=== PATIENT | female | born 1945 | race Caucasian/White ===

== ENCOUNTER 2025-05-17 11:26 | Emergency (ER) | payer MEDICARE, OTHER, SELFPAY ==
--- NOTE | ~2025-05-17 | CT_ITS ---
CLINICAL HISTORY: headache, unknown if traumatic CT head without contrast Comparison: None provided Findings: No intra-axial mass, midline shift, hydrocephalus, or acute hemorrhage. Mild heterogeneous low attenuation in the periventricular white matter. Etue-kt-skvjohzs cerebral atrophy. The visualized paranasal sinuses and mastoid air cells are normal. The orbits are within normal limits. There is no acute fracture. Hyperostosis frontalis interna. IMPRESSION: 1. No acute intracranial findings. 2. Mild chronic periventricular microvascular ischemic disease. 3. Ppwm-ks-oqhhdrdq cerebral atrophy. This document has been electronically signed by: Alec Madrid MD on 05/17/2025 14:33:09
--- NOTE | ~2025-05-17 | CT_ITS ---
CLINICAL HISTORY: headache, unsure if fall CT cervical spine without contrast Comparison: None provided Findings: C3-4: Grade 1 anterolisthesis C3 over C4. C7-T1: Grade 1 anterolisthesis C7 over T1. No significant degenerative change. No acute fractures or dislocations. Visualized intracranial contents are unremarkable. No cervical fluid collections or masses. No consolidation or effusion at the lung apices. 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 Mild anterior spurring. C5-6 moderate to severe DJD with mild anterior spurring. C6-7: Moderate DJD. IMPRESSION: 1. No acute cervical spine fracture or dislocation. 2. Grade 1 anterolisthesis of C3 on C4 and C7 on T1. 3. Moderate to severe degenerative changes, most pronounced at C5-C6. This document has been electronically signed by: Alec Madrid MD on 05/17/2025 14:31:33
[2025-05-17 11:33] VITALS: BP 110/69; BP 160/88; PULSE 70; PULSE 81; RESP 18; TEMP 36.4; O2SAT 98; O2SAT 99; BMI 25.2
--- NOTE | 2025-05-17 11:50 | PC.NURSE ---
Pt placed on camera and chair alarm for high fall risk and elopement risk. Completed closed loop communication with VMT. Pt resting comfortably in bed.
--- NOTE | 2025-05-17 12:02 | ED.GENADULT ---
HPI - General Adult General Chief complaint: Headache Stated complaint: HEADACHE Time Seen by Provider: 05/17/25 12:02 Source: patient, EMS, RN notes reviewed and old records reviewed Mode of arrival: EMS Limitations: altered mental status History of Present Illness ED Provider: Chang GREER narrative: Patient is a 79-year-old female with history of dementia presenting to the ED from the [facility] complaining of headache this morning. Patient states that her headache has since resolved. She denies any associated blurred vision, double vision or other visual changes associated with the headache. Denies feeling dizziness or lightheadedness. Denies any chest pain, shortness of breath, palpitations. Staff unsure if patient sustained a fall or other traumatic injury. MD complaint: headache Onset (ago): hour(s) Related Data Allergies Allergy/AdvReac Type Severity Reaction Status Date / Time Sulfa (Sulfonamide Allergy Unknown Verified 05/17/25 13:52 Antibiotics) Review of Systems Review of Systems: As per HPI Yes all other systems are reviewed and are negative Constitutional: Constitutional: Reports as per HPI Neurologic: Reports confusion Psychiatric: Psychiatric: Reports confusion [facility] Social History Social History Smoked in Last 30 Days: No Use of substances other than those prescribed or required for medical reasons: No Advance Directives: No Advance Directives Information Provided: No Do you have a plan to hurt others: No Plan Physical Exam ED Vital Signs: Vital Signs - 24 hr 05/17/25 11:33 Temperature 97.6 F Pulse Rate 70 Respiratory Rate 18 Blood Pressure 110/69 Pulse Oximetry 98 Oxygen Delivery Method Room Air BMI result Body Mass Index 25.2 Vital signs have been reviewed and appear to be correct. Blood pressure normal. Heart rate normal. Respiratory rate normal. Temperature normal. Oxygen saturation normal. Const General: cooperative, healthy appearing, no acute distress, alert, awake and confusion Nutritional Appearance: average body habitus Orientation/consciousness: oriented to person, oriented to place and confusion HENMT Head: Yes normocephalic, Yes atraumatic, No Young's sign and No periorbital ecchymosis Ears: external ears normal General nose exam: Normal external nose present Face and sinus: Yes face symmetric Mouth: oropharynx normal and moist mucous membranes Throat: Yes uvula midline Eyes Pupils: Equal, round and reactive pupils present, Pupils normal by confrontation and Pupil accommodation reflex normal EOM: EOMs intact bilaterally Neck Neck: Yes normal visual inspection, Yes no meningeal signs and Yes supple Resp Effort & Inspection: normal respiratory effort and able to speak in complete sentences Auscultation: clear to auscultation bilaterally Cardio Rate: regular rate Rhythm: regular rhythm Heart sounds: S1 normal heart sound present and S2 normal heart sound present GI Palpation (GI): Soft to palpation and nontender Auscultation: normoactive bowel sounds General: Yes no CVA tenderness Back/Spine/Pelvis Back: no CVA tenderness Skin General skin exam: elasticity normal and turgor normal Neuro General: oriented to person, oriented to place, tone normal, moves all extremities, Normal light touch and pain sensation, no meningeal signs, no focal motor deficits, CN's II-XI intact bilaterally, deep tendon reflexes 2+ bilaterally and confusion Cranial nerves: Yes Equal, round and reactive pupils present Cognition (Neuro): normal cognition Extrem General: Yes full ROM, Yes no pedal edema and Yes no calf tenderness Psych Mental Status: mental status grossly normal Affect: normal affect Thought process: Normal thought process present Medical Decision Making Medical Decision Making [facility] Narrative: Patient is a 79-year-old female with history of dementia presenting to the ED from the [facility] complaining of headache this morning. On exam patient is awake, A+Ox2, VS WNL, afebrile, neurological exam without focal deficits, physical exam findings as above. Given reported symptoms and physical exam findings, initial differential includes but is not limited to ICH, skull or cervical vertebral fracture subluxation, tension headache, viral illness, electrolyte abnormality. Labs unremarkable. Viral serology negative. CT head and cspine notable for no evidence of ICH, skull or cervical vertebral fracture or subluxation. My interpretation is in agreement with the radiologist's interpretation. UA is without evidence of infection. Headache resolved without treatment. Feel patient is stable for discharge back to [facility] at this time. Differential Diagnosis Differential Diagnoses: The differential diagnosis associated with the presentation includes as per [facility] Admission/Observation Consideration of admission/observation: Escalation of care including admission/observation considered Patient would have been admitted to the hospital had their clinical presentation warranted hospital admission. Lab Data [facility] Lab Attestation statement: I reviewed the patient's lab results. as per [facility] 05/17/25 12:25 05/17/25 12:25 Labs: Lab Results 05/17/25 05/17/25 Range/Units 12:25 15:36 WBC 9.0 (4.8-10.8) X10*3/uL RBC 4.68 (4.20-5.50) X10*6/uL Hgb 14.2 (12.0-16.0) g/dl Hct 41.8 (37.0-47.0) % MCV 89.3 (80.0-98.0) fL MCH 30.3 (27.0-33.0) pg MCHC 34.0 (31.0-35.0) g/dl RDW 12.4 (11.0-16.0) % Plt Count 244 (160-400) X10*3/uL MPV 8.9 L (9.4-12.3) fL Immature Gran % (Auto) 0.1 (0.0-0.4) % Neut % (Auto) 46.5 (45-73) % Lymph % (Auto) 40.0 (20-40) % [place] % (Auto) 10.8 (2-11) % Eos % (Auto) 2.0 (0-4) % Baso % (Auto) 0.6 (0-2) % Lymph # (Auto) 3.6 (1.2-4.9) X10*3/uL [place] # (Auto) 1.0 (0.1-1.2) X10*3/uL Eos # (Auto) 0.2 (0.0-0.4) X10*3/uL Baso # (Auto) 0.1 (0.0-0.2) X10*3/uL Abs Immat Gran (auto) 0.01 (0.00-0.03) X10*3/uL Absolute Neuts (auto) 4.2 (2.0-8.3) x10*3/uL Absolute Nucleated RBC 0.000 (0.0-0.012) X10*3/uL Nucleated RBC % (auto) 0.0 (0.0-0.2) /100WBC Sodium 142 (135-145) mmol/L Potassium 3.5 (3.3-5.1) mmol/L Chloride 109 H (96-108) mmol/L Carbon Dioxide 23 (22-29) mmol/L Anion Gap 14 (12-20) BUN 14 (9-16) mg/dL Creatinine 1.00 (0.5-1.4) mg/dL Estim Creat Clear Calc 42.7 Estimated GFR 53 Random Glucose 81 (60-115) mg/dL Calcium 9.6 (8.4-10.2) mg/dL Total Bilirubin 0.5 (0.0-1.0) mg/dL AST 30 (5-31) U/L ALT 11 (0-31) U/L Alkaline Phosphatase 82 (39-117) U/L Total Protein 7.2 (6.5-8.0) g/dL Albumin 4.2 (3.5-5.0) g/dL Urine Color Yellow Urine Appearance Clear Urine pH 8.5 (5.0-9.0) Ur Specific [place] 1.010 (1.005-1.025) Urine Protein Negative (Neg-Trace) mg/dL Urine Glucose (UA) Negative (Negative) mg/dL Urine Ketones Trace (Negative) mg/dL Urine Blood Negative (Negative) Urine Nitrite Negative (Negative) Ur Leukocyte Esterase Trace H (Negative) Urine RBC 0-2 (0-2) /HPF Urine WBC 0-5 (0-5) /HPF Ur Squamous Epith Cells 6-10 (0-2) /HPF Urine Bacteria Trace (None Seen) Hyaline Casts 0-2 (0-2) /LPF COVID-19 (LUCI) Negative (Negative) COVID-19 Clin Com See Note Influenza Type A (RADHA) Negative (Negative) Influenza Type B (RADHA) Negative (Negative) Influenza A & B Note See Note Independent Interpretation I performed an independent interpretation of an: CT Scan Interpretation: CT head and c-spine without evidence of ICH, skull or cervical vertebral fracture or subluxation. Radiology Impression Discussion of test interpretation with radiology: I have reviewed the radiologist's reading. Radiologist Impression: IMPRESSION: 1. No acute cervical spine fracture or dislocation. 2. Grade 1 anterolisthesis of C3 on C4 and C7 on T1. 3. Moderate to severe degenerative changes, most pronounced at C5-C6. IMPRESSION: 1. No acute intracranial findings. 2. Mild chronic periventricular microvascular ischemic disease. 3. [id number]-tq-eammtdsa cerebral atrophy. External Record Review External record reviewed: Inpatient record, Office record and Outpatient record Discharge Plan Discharge Clinical Impression: Headache Patient Disposition: Xfer [facility] Instructions: Acute Headache (DC) Additional Instructions: You were evaluated in the emergency department today for a headache which resolved without treatment. The CT scan of your brain did not show evidence of any bleeding or other acute abnormality. Your labs were reassuring. Your urine did not show evidence of infection. Follow-up with your primary care provider as needed. Return to the emergency department with any new or concerning symptoms. Print Language: Qatari
--- OUTSIDE RECORDS SUMMARY | 2025-05-17 12:09 | XMS_ITS | Encounter Summary ---
Author Organization [facility] Address [address] [place] [phone] Phone Care Team Providers Care Heel Burnisher Name Role Phone Tavo Gomez DO Unavailable Maryam Ortiz CNP Unavailable Lars Guillermo MD Unavailable Jackson Huerta MD Unavailable [phone] Tamia Melendez NP Unavailable [phone] Mamie Mccord MD Unavailable Maryam Ortiz CNP Primary Care Provide r Tavo Gomez DO Unavailable Unknown, Unknown Primary Care Provider Tamia Duque NP Primary Care Provider Lulu Odonnell MD Unavailable Encounter Details Date Type Department Care Team (Late st Contact Info) Description 02/20/2020 Transcribe Orders [facility] [address] [place] [address] Maryam Ortiz, MINILAB OPERATOR [address] [facility] [place] [address] Social History Tobacco Use Types Packs/Day Years Used Date Smoking Tobacco: Never Smokeless Tobacco: Never Alcohol Use Standard Drinks/Week Comments Yes 0 (1 standard drink = 0.6 oz pur e alcohol) Comments Unknown Sex and Gender Information Value Date Recorded Sex Assigned at Female 11/18/2019 11:42 AM EDT Legal Sex Female 10:08 PM EDT Gender Identity Female 11/18/2019 11:42 AM EDT Sexual Orientation Straight 11/18/2019 11 :42 AM EDT documented as of this encounter Plan of Treatment Not on file documented as of this encounter Visit Diagnoses Not on filedocumented in this encounter Care Teams Heel Burnisher Relationship Specialty Start Date End Date Maryam Ortiz CNP [address] [place] [phone] PCP - General Family Medicine 03/10/19 12/01/20 Unknown, Unknown, PCP - General 12/02/20 04/19/21 Tamia Melendez NP PCP - General Family Medicine 04/20/21 Tavo Gomez DO [address] [place] [phone] Historical LMR Provider 06/23/17 Maryam Ortiz CNP [address] [place] [address] Historical LMR Provider 06/23/17 Lars Guillermo MD [address] [place] [address] Historical LMR Provider 06/23/17 Jackson Huerta MD [address] [place] [address] [email or web address] Historical LMR Provider 06/23/17 09/10/21 Tamia Melendez NP [address] [place] [address] Historical LMR Provider 06/23/17 2 Mamie Mccord MD [address] [place] [address] Orthopedics & Sports Medicine, [place] [address] [email or web address] Historical LMR Provider 06/23/17 Tavo Gomez DO [address] [place] [address] [email or web address] Insurance Assigned Provider 12/10/19 09/10/21 Lulu Odonnell MD [address] [place] [phone] Hand Surgery 04/28/21 documented as of this encounter Additional Source Comments The information contained in this document represents components of the legal health record. It is not the complete legal health record.[facility]
--- OUTSIDE RECORDS SUMMARY | 2025-05-17 12:09 | XMS_ITS | Encounter Summary ---
Author Organization [facility] Address [address] [place] [phone] Phone Care Team Providers Care Business Continuity Consultant Name Role Phone Tavo Gomez DO Unavailable Maryam Ortiz CNP Unavailable Lars Guillermo MD Unavailable Jackson Huerta MD Unavailable [phone] Tamia Melendez NP Unavailable Mamie Mccord MD Unavailable Maryam Ortiz CNP Primary Care Provide r Tavo Gomez DO Unavailable Unknown, Unknown Primary Care Provider Tamia Duque NP Primary Care Provider Lulu Odonnell MD Unavailable Reason for Referral * MRI/CAT Scan - Closed Specialty Diagnoses / Procedures Referred By Adina chambers Referred To Contact Radiology Diagnoses Lower abdominal pain Bloating Change in bowel habits Procedures CT Abdomen/Pelvis Kacy Angeles NP Phone: tel: fax: [email or web address] Referral ID Status Reason Start Date Expiration Date Visits Re quested Visits Authorized [id number] Closed 03/20/2019 03/19/2020 1 1 Encounter Details Date Type Department Care Team (Latest Contact Info) Description 03/20/2019 Transcribe Orders Virtual Department [address] [place] [phone] Kacy Angeles NP [address] [place] [address] [email or web address] Lower abdominal pain (Primary Dx); Bloating; Change in bowel habits Social History Tobacco Use Types Packs/Day Years Used Date Smoking Tobacco: Never Smokeless Tobacco: Never Comments Unknown Sex and Gender Information Value Date Recorded Sex Assigned at Female 11/18/2019 11:42 AM EDT Legal Sex Female 10:08 PM EDT Gender Identity Female 11/18/2019 11:42 AM EDT Sexual Orientation Straight 11/18/2019 11 :42 AM EDT documented as of this encounter Plan of Treatment Not on file documented as of this encounter Results * CT ABDOMEN/PELVIS WITH CONTRAST (03/27/2019 3:22 PM EDT) Anatomical Region Laterality Modality Abdomen, Pelvis Computed Tomogra phy 03/27/2019 3:48 PM EDT Impressions 03/27/2019 3:55 PM EDT Sigmoid diverticulosis without evidence of acute diverticulitis. 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 TOTAL CTDIvol: 6.30 mGy POS - [id number] Narrative 03/27/2019 3:55 PM EDT COMPARISON: 10/16/2014 ultrasound TECHNIQUE: Helical scanning was performed from the dome of the liver through the inferior pubic rami following intravenous and oral administration of contrast material. Sagittal and coronal reformats generated. Automated exposure control utilized. FINDINGS: There is a 10 x 7 mm diameter hypodense lesion in the left hepatic lobe displaying internal Hounsfield units upper limits normal for fluid but documented as a cyst on prior ultrasound. No hepatic mass, bile duct dilatation, or perihepatic ascites are identified. Portal vein appears to be grossly patent. No choledocholithiasis is seen. Spleen and adrenal glands are unremarkable in appearance. No pancreatic mass, duct dilatation, or peripancreatic inflammatory changes are identified. No renal mass, dominant cyst, or hydronephrosis apparent. 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 Bladder is unremarkable in appearance. No hiatal hernia. No evidence of small bowel obstruction or acute appendicitis. Stool and gas are present throughout nonopacified colonic loops with multiple sigmoid diverticula noted but no surrounding inflammatory infiltration to imply acute diverticulitis. Patient is status-post hysterectomy. No free fluid collections are seen in the dependent portion of the pelvis. No adnexal mass. No evidence of aortoiliac aneurysm. No pathologically enlarged mesenteric, para-aortic, iliac chain, or inguinal lymph nodes are demonstrated. No bowel-containing abdominal wall hernia. There is linear scarring versus subsegmental atelectasis in the right lower lobe. Additional atelectatic-type opacities are suggested in the more basilar aspects of both lower lobes. No traumatic or destructive skeletal lesions identified. Disc space calcification is noted at the L4-5 and L5-S1 levels with prominent degenerative facet arthropathy at the lumbosacral junction. Procedure Note Renay Ewing MD - 03/27/2019 COMPARISON: 10/16/2014 ultrasound TECHNIQUE: Helical scanning was performed from the dome of the liverthrough the inferior pubic rami following intravenous and oraladministration of contrast material. Sagittal and coronal reformatsgenerated. Automated exposure control utilized. FINDINGS: There is a 10 x 7 mm diameter hypodense lesion in the left hepatic lobedisplaying internal Hounsfield units upper limits normal for fluid butdocumented as a cyst on prior ultrasound. No hepatic mass, bile ductdilatation, or perihepatic ascites are identified. Portal vein appears jose antonio grossly patent. No choledocholithiasis is seen. Spleen and adrenal glands are unremarkable in appearance. No pancreaticmass, duct dilatation, or peripancreatic inflammatory changes areidentified. No renal mass, dominant cyst, or hydronephrosis apparent. There isduplication of the left renal collecting system with the ureteralcomponents merging proximally. Bladder is unremarkable in appearance. No hiatal hernia. No evidence of small bowel obstruction or acuteappendicitis. Stool and gas are present throughout nonopacified colonicloops with multiple sigmoid diverticula noted but no surroundinginflammatory infiltration to imply acute diverticulitis. Patient is status-post hysterectomy. No free fluid collections are seenin the dependent portion of the pelvis. No adnexal mass. No evidence ofaortoiliac aneurysm. No pathologically enlarged mesenteric, para-aortic,iliac chain, or inguinal lymph nodes are demonstrated. Nobowel-containing abdominal wall hernia. There is linear scarring versus subsegmental atelectasis in the rightlower lobe. Additional atelectatic-type opacities are suggested in themore basilar aspects of both lower lobes. No traumatic or destructive skeletal lesions identified. Disc spacecalcification is noted at the L4-5 and L5-S1 levels with prominentdegenerative facet arthropathy at the lumbosacral junction. IMPRESSION: Sigmoid diverticulosis without evidence of acute diverticulitis. Chronicsmall hepatic cyst and duplex left renal collecting system without othersignificant intra- abdominal or retroperitoneal pathology identified. TOTAL CTDIvol: 6.30 mGy POS - [id number] Kacy Angeles [employer]ROOM ATTENDANT IMG CT ABD/PELVIS Final Res ult documented in this encounter Visit Diagnoses Diagnosis Lower abdominal pain- Primary Abdominal pain, other specified site Bloating Flatulence, eructation, and gas pain Change in bowel habits Other symptoms involving digestive system Lower abdominal pain Abdominal pain, other specified site Bloating Flatulence, eructation, and gas pain Change in bowel habits Other symptoms involving digestive system documented in this encounter Additional Health Concerns Infection Onset Date Last Indicated Resolved Time CoV-Risk Comment:COVID-19 test pending 12/01/2019 12/01/2019 12/15/2019 1:23 AM EDT COVID-19 12/01/2019 12/01/2019 01/11/2020 1:23 AM EDT documented as of this encounter Care Teams Business Continuity Consultant Relationship Specialty Start Date End Date Maryam Ortiz CNP [address] [place] [phone] [email or web address] PCP - General Family Medicine 03/10/19 12/01/20 Unknown, Janeth, PCP - General 12/02/20 04/19/21 Tamia Melendez NP PCP - General Family Medicine 04/20/21 Tavo Gomez DO [address] [place] [address] [email or web address] Historical LMR Provider 06/23/17 Maryam Ortiz CNP [address] [place] [address] [email or web address] Historical LMR Provider 06/23/17 Lars Guillermo MD [address] [place] [phone] Historical LMR Provider 06/23/17 Jackson Huerta MD [address] [place] [phone] [email or web address] Historical LMR Provider 06/23/17 09/10/21 Tamia Melendez NP [address] [place] [address] Historical LMR Provider 06/23/17 Mamie Heart MD [address] [place] [address] Orthopedics [facility] Sports Medicine, [place] [address] [email or web address] Historical LMR Provider 06/23/17 Tavo Gomez DO [address] [place] [address] [email or web address] Insurance Assigned Provider 12/10/19 09/10/21 Lulu Odonnell MD [address] [place] [id number] Hand Surgery 04/28/21 documented as of this encounter Additional Source Comments The information contained in this document represents components of the legal health record. It is not the complete legal health record.[facility]
--- OUTSIDE RECORDS SUMMARY | 2025-05-17 12:09 | XMS_ITS | Encounter Summary ---
Author Organization [facility] Address [address] [place] [address] Phone Care Team Providers Care Scraper Tender Name Role Phone Tavo Gomez DO Unavailable Maryam Ortiz CNP Unavailable Lars Guillermo MD Unavailable Jackson Huerta MD Unavailable [phone] Tamia Melendez NP Unavailable Mamie Mccord MD Unavailable Tavo Gomez DO Unavailable Tavo Gomez DO Primary Care Provider Maryam Ortiz CNP Primary Care Provide r Tavo Gomez DO Unavailable Unknown, Unknown Primary Care Provider Tamia Duque ROLLER GOLD LEAF Primary Care Provider Lulu Odonnell MD Unavailable Encounter Details Date Type Department Care Team (Late st Contact Info) Description 11/18/2018 Ancillary Orders Non-Invasive Cardiology [address] [place] [address] Maryam Ortiz, QA ANALYST [address] [place] [address] Abnormal stress test; Increased heart rate; Activity intolerance Social History Tobacco Use Types Packs/Day Years [...] documented as of this encounter Results * NC Stress Result for Nuclear Stress Test (11/18/2018 10:06 AM EDT) Max BP Systolic 180 mmHg [facility] Max BP Diastolic 60 mmHg [facility] Max HR 157 BPM [facility] Resting HR 66 BPM [facility] Resting BP Systolic 120 mmHg [facility] Resting BP Diastolic 70 mmHg [facility] Peak METS 10.1 METS [facility] Peak HR 155 BPM [facility] Anatomical Region Laterality Modality Heart Other 11/18/2018 9:23 AM EDT 11/18/2018 10:08 AM EDT Narrative 11/18/2018 2:00 PM EDT This report represents only part of the nuclear stress test - sestamibi images will be reported separately by the Dept. of Radiology. Stress Findings Sestamibi images will be reported out separately by the Department of Radiology. This report represents only part of the nuclear stress test. Correlation of the imaging and electrocardiographic results is necessary. Since both tests have a percentage of false negatives/positives, both results must be correlated with the patient's other clinical date. Response to Stress The patient exercised for minutes seconds, achieving 10.1 METS at peak exercise. Baseline blood pressure was 120/70 mmHg, and baseline heart rate was 66 bpm. The patient achieved a peak heart rate of 155 bpm, which is% of their maximum predicted heart rate. Pt exercised for 7:45 min on a MILAGRO protocol achieving 10.1 METS. Test terminated due to fatigue. Baseline resting HR was 66. Max heart rate achieved was 157 (106% MPHR). 1. EKG - Baseline EKG showed normal sinus rhythm, nonspecific ST T wave abn. During exercise, there were 1-[address] depressions in the inferior leads and V4-V6. EKGs improved in early recovery. 2. SYMPTOMS - no chest pain. 3. EXERCISE PHYSIOLOGY - normal BP response to exercise. Normal functional capacity for age. 4. ARRHYTHMIAS - no ectopy Conclusion - abnormal stress test with EKG changes that are suggestive of ischemia. Nuclear images pending and will be reported separately. Clinton Reeves NP . Maryam Ortiz QA ANALYST CV NM CARDIAC Final Result documented in this encounter Visit Diagnoses Diagnosis Abnormal stress test Other nonspecific abnormal cardiovascular system function study Increased heart rate Unspecified tachycardia Activity intolerance Abnormal stress test Other nonspecific abnormal cardiovascular system function study Increased heart rate Unspecified tachycardia Activity intolerance documented in this encounter Additional Health Concerns Infection Onset Date Last Indicated Resolved Time CoV-Risk Comment:COVID-19 test pending 12/01/2019 12/01/2019 12/15/2019 1:23 AM EDT COVID-19 12/01/2019 12/01/2019 01/11/2020 1:23 AM EDT documented as of this encounter Care Teams Scraper Tender Relationship Specialty Start Date End Date Tavo Gomez DO [address] [place] [address] PCP - General Family Medicine 11/04/18 03/09/19 Maryam Ortiz, ZAID [address] [place] [address] PCP - General Family Medicine 03/10/19 12/01/20 Unknown, Unknown, PCP - General 12/02/20 04/19/21 Tamia Melendez NP PCP - General Family Medicine 04/20/21 Tavo Gomez DO [address] [place] [address] Historical LMR Provider 06/23/17 Maryam Ortiz CNP [address] [place] [address] Historical LMR Provider 06/23/17 Lars Guillermo MD [address] [place] [address] Historical LMR Provider 06/23/17 Jackson Huerta MD [address] [place] [address] [email or web address] Historical LMR Provider 06/23/17 09/10/21 Tamia Melendez NP [address] [place] [address] Historical LMR Provider 06/23/17 2 Mamie Mccord MD [address] [place] [address] [facility] Medicine, [place] [address] Historical LMR Provider 06/23/17 Tavo Gomez DO [address] [place] [address] Insurance Assigned Provider 12/01/17 03/15/19 Tavo Gomez DO [address] [place] [address] [email or web address] Insurance Assigned Provider 12/10/19 09/10/21 Lulu Odonnell MD [address] [place] [address] Hand Surgery 04/28/21 documented as of this encounter Additional Source Comments The information contained in this document represents components of the legal health record. It is not the complete legal health record.[facility]
--- OUTSIDE RECORDS SUMMARY | 2025-05-17 12:09 | XMS_ITS | Encounter Summary ---
Author Organization [facility] Address [address] [place] [address] Phone Care Team Providers Care Supervisor Reactor Fueling Name Role Phone Tavo Gomez DO Unavailable Maryam Ortiz CNP Unavailable Lars Guillermo MD Unavailable Jackson Huerta MD Unavailable [phone] Tamia Melendez NP Unavailable [phone] Mamie Mccord MD Unavailable Tavo Gomez DO Unavailable Maryam Ortiz CNP Primary Care Provide r Tavo Gomez DO Primary Care Provider [phone] Maryam Ortiz FLIGHT DATA TECHNICIAN Primary Care Provide r Tavo Gomez DO Unavailable Unknown, Unknown Primary Care Provider Tamia Duque NATURAL RESOURCE TECHNICIAN Primary Care Provider Lulu Odonnell MD Unavailable [phone] Encounter Details Date Type Department Care Team (Late st Contact Info) Description 07/01/2018 Transcribe Orders [facility] [address] [place] [address] Maryam Ortiz CNP [address] [place] [address] Social History Tobacco Use Types Packs/Day Years [...] Diagnoses Not on filedocumented in this encounter Additional Health Concerns Infection Onset Date Last Indicated Resolved Time CoV-Risk Comment:COVID-19 test pending 12/01/2019 12/01/2019 12/15/2019 1:23 AM EDT COVID-19 12/01/2019 12/01/2019 01/11/2020 1:23 AM EDT documented as of this encounter Care Teams Supervisor Reactor Fueling Relationship Specialty Start Date End Date Maryam Ortiz, ZAID [address] [place] [address] PCP - General Family Medicine 07/01/18 11/03/18 Tavo Gomez DO [address] [place] [address] [email or web address] PCP - General Family Medicine 11/04/18 03/09/19 Maryam Ortiz CNP [address] [place] [address] PCP - General Family Medicine 03/10/19 12/01/20 Unknown, Unknown, PCP - General 12/02/20 04/19/21 Tamia Melendez NP PCP - General Family Medicine 04/20/21 Tavo Gomez DO [address] [place] [address] [email or web address] Historical LMR Provider 06/23/17 Maryam Ortiz CNP [address] [place] [address] [email or web address] Historical LMR Provider 06/23/17 Lars Guillermo MD [address] [place] [address] Historical LMR Provider 06/23/17 Jackson Huerta MD [address] [place] [address] [email or web address] Historical LMR Provider 06/23/17 09/10/21 Tamia Melendez NP [address] [place] [address] Historical LMR Provider 06/23/17 2 Mamie Mccord MD [address] [place] [address] [facility] Medicine, [place] [address] [email or web address] Historical LMR Provider 06/23/17 Tavo Gomez DO [address] [place] [address] [email or web address] Insurance Assigned Provider 12/01/17 03/15/19 Tavo Gomez DO [address] [place] [address] [email or web address] Insurance Assigned Provider 12/10/19 09/10/21 Lulu Odonnell MD [address] [place] [address] Hand Surgery 04/28/21 documented as of this encounter Additional Source Comments The information contained in this document represents components of the legal health record. It is not the complete legal health record.[facility]
--- OUTSIDE RECORDS SUMMARY | 2025-05-17 12:09 | XMS_ITS | Clinical Summary ---
Author Organization [facility] Address [facility] [place] [address] Care Team Providers Care Traffic Sergeant Name Role Phone Unavailable Primary Care Provider Unavailabl e Allergies Active Allergy Reactions Criticality Noted Date Comments Sulfa (Sulfonamide Antibiotics) Anaphylaxis High 06/2018 Medications VITAMIN C, ASCORBATE CALCIUM, ORAL Take 1 capsule by mouth Daily. Active docosahexaenoic acid/epa (FISH OIL ORAL) Take 1 capsule by mouth Daily. 01/09/2012 Active aspirin 81 mg Tablet, Chewable Take 1 tablet by mouth Daily. Active cholecalciferol , Vitamin D3, 50 mcg (2,000 unit) Tablet Take 1,000 Units by mouth Daily. Active L.acid,ferm,michael ,rha-B.bif,long 126 mg (2 billion cell) tablet, delayed & ext.release Take 1 capsule by mouth Daily. Active levothyroxine (Synthroid) 25 mcg Tablet Take 12.5 mcg by mouth daily. 10/06/2022 Active Active Problems No known active problems Social History Tobacco Use Types Packs/Day Years Used Date Smoking Tobacco: Former Cigarettes Smokeless Tobacco: Never Tobacco Cessation:Counseling Given: Not Answered Comments Unknown Sex and Gender Information Value Date Recorded Sex Assigned at Not on file Legal Sex Female 3:41 PM EST Gender Identity Not on file Sexual Orientation Not on file Last Filed Vital Signs Vital Sign Reading Time Taken Comments Blood Pressure 156/84 11/07/2022 8:04 AM EST Pulse 76 11/07/2022 8:04 AM EST Temperature 36.1 C (97 F) 11/07/2022 8:04 AM EST Respiratory Rate - - Oxygen Saturation 97% 11/07/2022 8:04 AM EST Inhaled Oxygen Concentration - - Weight - - Height - - Body Mass Index - - Plan of Treatment Health Maintenance Due Date Last Done Comments Hepatitis C Screening 1963 Tetanus/Diphtheria/Pertussis Vaccines (1 - Tdap) 08/09 Pneumoccocal Vaccine: 50+ (1 of 1 - PCV) 1995 Zoster vaccine (1 of 2) 1995 Advance Directive 2000 Bone Density Scan 2010 RSV Vaccine (1 - 1-dose 75+ series) 2020 Covid-19 Vaccine (1 - 2023- season) 2025 Influenza (Flu) vaccine (1 o f 1 - Influenza standard series) 05/04/2025 Insurance MEDICARE [facility]
--- OUTSIDE RECORDS SUMMARY | 2025-05-17 12:09 | XMS_ITS | Encounter Summary ---
Author Organization [facility] Address [address] [place] [address] Phone Care Team Providers Care Culinary Internship Name Role Phone Tavo Gomez DO Primary Care Provider [phone] Tavo Gomez DO Unavailable Maryam Ortiz CNP Unavailable Lars Guillermo MD Unavailable Jackson Huerta MD Unavailable [phone] Tamia Melendez NP Unavailable Mamie Mccord MD Unavailable [phone] Tavo Gomez DO Unavailable Maryam Ortiz CNP Primary Care Provide r Tavo Gomez DO Primary Care Provider [phone] Maryam Ortiz CNP Primary Care Provide r Tavo Gomez DO Unavailable Unknown, Unknown Primary Care Provider Tamia Duque NP Primary Care Provider Lulu Odonnell MD Unavailable [phone] Encounter Details Date Type Department Care Team (Late st Contact Info) Description 09/10/2017 Transcribe Orders [facility] [address] [place] [address] Tavo Gomez, DO [address] [facility] [place] [address] [email or web address] Impaired fasting glucose; Acquired hypothyroidism Social History Tobacco Use Types Packs/Day Years Used Date Smoking Tobacco: Never Assessed Comments Unknown Sex and Gender Information Value Date Recorded Sex Assigned at Female 11/18/2019 11:42 AM EDT Legal Sex Female 10:08 PM EDT Gender Identity Female 11/18/2019 11:42 AM EDT Sexual Orientation Straight 11/18/2019 11 :42 AM EDT documented as of this encounter Plan of Treatment Not on file documented as of this encounter Procedures Procedure Name Priority Date/Time Associated Diagnosis Comments COMPREHENSIVE METABOLIC PANEL Routine 09/10/2017 11:04 AM EST Impaired fasting glucose CBC Routine 09/10/2017 11:04 AM EST Impaired fasting glucose TSH Routine 09/10/2017 11:04 AM EST Acquired hypothyroidism LIPID PANEL Routine 09/10/2017 11:04 AM EST Acquired hypothyroidism documented in this encounter Results * TSH (09/10/2017 11:04 AM EST) TSH 2.01 0.27 - 4.20 uIU/mL [facility] Blood 09/10/2017 11:0 4 AM EST 09/10/2017 11:06 AM EST us Maryam Ortiz TRACK REPAIR SUPERVISOR LAB BLOOD ORDERABLES Final Result [facility] [address] [place] [address] * (ABNORMAL) Lipid panel (09/10/2017 11:04 AM EST) HDL 57 mg/dL [facility] Comment: Interpretation: Risk Level Females Decreased >55mg/dL Average 50-55 mg/dL Increased <50 mg/dL CHOLESTEROL 227 0 - 240 mg/dL [facility] TRIGLYCERIDES 151 30 - 160 mg/dL [facility] LDL 140(H) 50 - 129 mg/dL [facility] Comment: LDL levels in terms of risk for coronary heart disease: <100 mg/dL: Optimal 100-129 mg/dL: Near or above optimal 130-159 mg/dL: Borderline high 160-189 mg/dL: High >190 mg/dL: Very High CARDIAC RISK RATIO 4.0 3.3 - 4.4 C [facility] Blood 09/10/2017 11:0 4 AM EST 09/10/2017 11:06 AM EST us Maryam Ortiz [facility] LAB BLOOD ORDERABLES Final Result [facility] [address] [place] [address] * Comprehensive metabolic panel (09/10/2017 11:04 AM EST) SODIUM 142 133 - 146 mmol/L [facility] POTASSIUM 4.1 3.3 - 5.1 mmol/L [facility] CHLORIDE 102 96 - 108 mmol/L [facility] CO2 29 21 - 35 mmol/L [facility] BUN 14 6 - 19 mg/dL [facility] CREATININE 0.80 0.5 - 1.5 mg/dL [facility] GLUCOSE 82 70 - 99 mg/dL [facility] ALBUMIN 4.2 3.9 - 4.8 g/dL [facility] TOTAL PROTEIN 7.3 6.5 - 8.0 g/dL [facility] CALCIUM 9.8 8.4 - 10.3 mg/dL [facility] ALKALINE PHOSPHATASE 69 39 - 117 U/L [facility] TOTAL BILIRUBIN 0.4 0 - 1.2 mg/dL [facility] AST 21 0 - 37 U/L [facility] ALT 9 0 - 40 U/L [facility] GLOBULIN 3.1 1 - 4.8 g/dL [facility] EGFR >60 mL/min/1.7 3m2 [facility] Comment:Abnormal if <60. If patient is -Afghan, multiply the result by 1.21. ANION GAP 15 10 - 20 mmol/L [facility] Blood 09/10/2017 11:0 4 AM EST 09/10/2017 11:06 AM EST Maryam Ortiz CNP LAB BLOOD ORDERABLES Final Result Performing Organization Address City/[facility]/ZIP Co de Phone Number [address] [address] * (ABNORMAL) CBC (09/10/2017 11:04 AM EST) WBC 7.09 3.40 - 11.20 K/uL [facility] RBC 4.83(H) 3.80 - 4.80 M/uL [facility] HGB 14.5 12.0 - 15.0 g/dL [facility] HCT 44.0 36.0 - 46.0 % [facility] PLT 233 130 - 400 K/uL [facility] MCV 91.1 79.0 - 98.0 fL [facility] MCH 30.0 27.0 - 34.8 pg [facility] MCHC 33.0 31.5 - 36.0 g/dL [facility] RDW 11.9 10.8 - 14.6 % [facility] MPV 9.4 9.4 - 12.4 [facility] NRBC 0.00 /100 WBCs [facility] ABSOLUTE NRBC 0.00 K/uL [facility] Blood 09/10/2017 11:0 4 AM EST 09/10/2017 11:06 AM EST Maryam Ortiz CNP LAB BLOOD ORDERABLES Final Result Performing Organization Address City/[facility]/ZIP Co de Phone Number [address] [address] documented in this encounter Visit Diagnoses Diagnosis Impaired fasting glucose Acquired hypothyroidism Unspecified hypothyroidism documented in this encounter Additional Health Concerns Infection Onset Date Last Indicated Resolved Time CoV-Risk Comment:COVID-19 test pending 12/01/2019 12/01/2019 12/15/2019 1:23 AM EDT COVID-19 12/01/2019 12/01/2019 01/11/2020 1:23 AM EDT documented as of this encounter Care Teams Culinary Internship Relationship Specialty Start Date End Date Tavo Gomez DO [address] [place] [address] PCP - General 06/21/17 06/30/18 Maryam Ortiz, ZAID [address] [place] [address] PCP - General Family Medicine 07/01/18 11/03/18 Tavo Gomez DO [address] [place] [address] PCP - General Family Medicine 11/04/18 03/09/19 Maryam Ortiz, ZAID [address] [place] [address] PCP - General Family Medicine 03/10/19 12/01/20 Unknown, Unknown, PCP - General 12/02/20 04/19/21 Tamia Melendez SEWAGE RETICULATION DRAFTING OFFICER PCP - General Family Medicine 04/20/21 Tavo Gomez DO [address] [place] [phone] Historical LMR Provider 06/23/17 Maryam Ortiz, ZAID [address] [place] [address] [email or web address] Historical LMR Provider 06/23/17 Lars Guillermo MD [address] [place] [address] Historical LMR Provider 06/23/17 Jackson Huerta MD [address] [place] [address] [email or web address] Historical LMR Provider 06/23/17 09/10/21 Tamia Melendez NP [address] [place] [address] Historical LMR Provider 06/23/17 Mamie Heart MD [address] [place] [address] [facility], [place] [address] [email or web address] Historical LMR Provider 06/23/17 Tavo Gomez DO [address] [place] [address] Insurance Assigned Provider 12/01/17 03/15/19 Tavo Gomez DO [address] [place] [address] Insurance Assigned Provider 12/10/19 09/10/21 Lulu Odonnell MD [address] [place] [address] Hand Surgery 04/28/21 documented as of this encounter Additional Source Comments The information contained in this document represents components of the legal health record. It is not the complete legal health record.[facility]
--- OUTSIDE RECORDS SUMMARY | 2025-05-17 12:09 | XMS_ITS | Encounter Summary ---
Author Organization [facility] Address [address] [place] [address] Phone Care Team Providers Care Company Secretary Name Role Phone Tavo Gomez DO Unavailable Maryam Ortiz CNP Unavailable Lars Guillermo MD Unavailable Jackson Huerta MD Unavailable [phone] Tamia Melendez NP Unavailable Mamie Mccord MD Unavailable Tavo Gomez DO Unavailable Maryam Ortiz CNP Primary Care Provide r Tavo Gomez DO Primary Care Provider [phone] Maryam Ortiz DIESEL ENGINE INSPECTOR Primary Care Provide r Tavo Gomez DO Unavailable Unknown, Unknown Primary Care Provider Tamia Duque COIL REPAIR TECHNICIAN Primary Care Provider Lulu Odonnell MD Unavailable Encounter Details Date Type Department Care Team (Late st Contact Info) Description 09/13/[address] [facility] [address] [place] [address] Maryam Ortiz CNP [address] [place] [address] Social History Tobacco Use Types Packs/Day Years [...] documented as of this encounter Care Teams Company Secretary Relationship Specialty Start Date End Date Maryam Ortiz, ZAID [address] [place] [address] PCP - General Family Medicine 07/01/18 11/03/18 Tavo Gomez DO [address] [place] [address] [email or web address] PCP - General Family Medicine 11/04/18 03/09/19 Maryam Ortiz CNP [address] [place] [address] PCP - General Family Medicine 03/10/19 12/01/20 Unknown, Unknown, PCP - General 12/02/20 04/19/21 Tamia Melendez NP PCP - General Family Medicine 04/20/21 Tavo Gomez DO [address] [place] [address] [email or web address] Historical LMR Provider 06/23/17 Maryam Ortiz CNP [address] [place] [address] [email or web address] Historical LMR Provider 06/23/17 Lars Guillermo MD [address] [place] [address] Historical LMR Provider 06/23/17 Jackson Huerta MD [address] [place] [address] [email or web address] Historical LMR Provider 06/23/17 09/10/21 Tamia Melendez NP [address] [place] [address] Historical LMR Provider 06/23/17 2 Mamie Mccord MD [address] [place] [address] [facility], [place] [address] [email or web address] Historical LMR Provider 06/23/17 Tavo Gomez DO [address] [place] [address] [email or web address] Insurance Assigned Provider 12/01/17 03/15/19 Tavo Gomez DO [address] [place] [address] [email or web address] Insurance Assigned Provider 12/10/19 09/10/21 Lulu Odonnell MD [address] [place] [phone] Hand Surgery 04/28/21 documented as of this encounter Additional Source Comments The information contained in this document represents components of the legal health record. It is not the complete legal health record.[facility]
--- OUTSIDE RECORDS SUMMARY | 2025-05-17 12:09 | XMS_ITS | Encounter Summary ---
Author Organization [facility] Address [address] [place] [address] Phone Care Team Providers Care Academic Affairs Dean Name Role Phone Tavo Gomez DO Unavailable Maryam Ortiz CNP Unavailable Lars Guillermo MD Unavailable [phone] Jackson Huerat MD Unavailable [phone] Tamia Melendez NP Unavailable Mamie Mccord MD Unavailable Maryam Ortiz CNP Primary Care Provide r Tavo Gomez DO Unavailable Unknown, Unknown Primary Care Provider Tamia Duque NP Primary Care Provider Lulu Odonnell MD Unavailable [phone] Encounter Details Date Type Department Care Team (Latest Contact Info) Description 03/19/2019 Transcribe Orders [facility] Laboratory [address] [place] [address] [phone] Kacy Angeles NP [address] [place] [address] [email or web address] Change in bowel habits (Primary Dx); Bloating; Lower abdominal pain Social History Tobacco Use Types Packs/Day Years [...] documented as of this encounter Results * H. pylori antigen, stool (03/22/2019 9:32 AM EDT) [facility] Negative Negative [facility] DPT OF LAB MED AND PAT+ Stool (Stool) 03/22/2019 9:3 2 AM EDT 03/22/2019 9:43 AM EDT us Kacy Angeles DRY CHAIN WORKER BODY FLUIDS AND STOOLS KAT SHUKLA Final Result [facility] DPT OF LAB MED AND PAT+ [address] [place] [address] * Fecal occult blood, multiple (03/22/2019 9:32 AM EDT) FECAL OCC BLD 1 DATE [id number] [facility] Occult bld, stool, #1 Negative Negative [facility] FECAL OCC BLD 2 DATE [phone],[id number] [facility] OCCULT BLD, STOOL, #2 Negative Negative [facility] FECAL OCC BLD 3 DATE 7,,019 [facility] FECAL OCC BLD 3 RSLT Negative Negative [facility] Stool (Stool) 03/22/2019 9:3 2 AM EDT 03/22/2019 9:38 AM EDT us Kacy Angeles DRY CHAIN WORKER BODY FLUIDS AND STOOLS ORDE RABMERLYN Final Result [facility] [address] [place] [address] * Giardia antigen screen (03/22/2019 9:32 AM EDT) ST GIARDIA ANTIGEN Negative Negative [facility] DPT OF LAB MED AND PAT+ Stool (Stool) 03/22/2019 9:3 2 AM EDT 03/22/2019 9:43 AM EDT Kacy Angeles DRY CHAIN WORKER MICROBIOLOGY - GENERAL ORDE RABMERLYN Final Result Performing Organization Address City/[facility]/ZIP Co de Phone Number [facility] DPT OF LAB MED AND PAT+ [address] [place] [address] * Ova and parasites, stool (03/22/2019 5:30 AM EDT) Special Requests None 03/22/2019 9:32 AM EDT [facility] DIRECT EXAM NO PARASITES FOUND BY DIRECT OR CONCENTRATION METHODS 03/27/2019 2:25 PM EDT [facility] DIRECT EXAM No parasites found by Trichrome Stain 03/27/2019 2:25 PM EDT [facility] Stool (Stool) 03/22/2019 5:3 0 AM EDT 03/22/2019 9:41 AM EDT Comment:STOOL Kacy Angeles NP MICROBIOLOGY - GENERAL ORDE RABMERLYN Final Result Performing Organization Address [facility] de Phone Number [address] [address] * Fecal leukocyte examination (03/22/2019 5:30 AM EDT) Special Requests None 03/22/2019 9:32 AM EDT [facility] GRAM STAIN Many WBC'S Observed 03/23/2019 1:42 PM EDT [facility] Stool (Stool) 03/22/2019 5:3 0 AM EDT 03/22/2019 9:41 AM EDT Kacy Angeles NP MICROBIOLOGY - GENERAL ORDE GAYLA Edited Result - Final Performing Organization Address [facility]/ZIP Co de Phone Number [address] [address] * Stool culture (03/22/2019 5:30 AM EDT) Special Requests None 03/22/2019 9:32 AM EDT [facility] Stool Culture NO SALMONELLA, SHIGELLA OR CAMPYLOBACTER ISOLATED 03/24/2019 10:26 AM EDT [facility] Stool (Stool) 03/22/2019 5:3 0 AM EDT 03/22/2019 9:41 AM EDT Kacy Angeles NP MICROBIOLOGY - GENERAL [facility] Final Result Performing Organization Address [facility] Co de Phone Number [address] [address] * Ova and parasites, stool (03/21/2019 6:30 AM EDT) Special Requests None 03/22/2019 9:32 AM EDT [facility] DIRECT EXAM NO PARASITES FOUND BY DIRECT OR CONCENTRATION METHODS 03/27/2019 2:26 PM EDT [facility] DIRECT EXAM No parasites found by Trichrome Stain 03/27/2019 2:26 PM EDT [facility] Stool (Stool) 03/21/2019 6:3 0 AM EDT 03/22/2019 9:40 AM EDT Kacy Angeles NP MICROBIOLOGY - GENERAL ORDE [facility] Final Result Performing Organization Address City/[facility]/ZIP Co de Phone Number [address] [address] * Ova and parasites, stool (03/20/2019 6:15 AM EDT) Special Requests None 03/22/2019 9:32 AM EDT [facility] DIRECT EXAM NO PARASITES FOUND BY DIRECT OR CONCENTRATION METHODS 03/27/2019 2:25 PM EDT [facility] DIRECT EXAM No parasites found by Trichrome Stain 03/27/2019 2:25 PM EDT [facility] Stool (Stool) 03/20/2019 6:1 5 AM EDT 03/22/2019 9:36 AM EDT Comment:STOOL Kacy Angeles DRY CHAIN WORKER MICROBIOLOGY - GENERAL ORDE RABMERLYN Final Result [address] [address] * C-Reactive Protein (03/19/2019 10:10 AM EDT) C REACTIVE PROTEIN 0.9 0.0 - 4.0 mg/L [facility] Blood 03/19/2019 10:1 0 AM EDT 03/19/2019 10:24 AM EDT Kacy Angeles DRY CHAIN WORKER LAB BLOOD ORDERABLES Final Result Performing Organization Address City/[facility]/ZIP Co de Phone Number [address] [address] * (ABNORMAL) Comprehensive metabolic panel (03/19/2019 10:10 AM EDT) Pathologist [facility] SODIUM 143 133 - 146 mmol/L [facility] POTASSIUM 4.5 3.3 - 5.1 mmol/L [facility] CHLORIDE 105 96 - 108 mmol/L [facility] CO2 29 21 - 35 mmol/L [facility] BUN 20(H) 6 - 19 mg/dL [facility] CREATININE 0.90 0.5 - 1.5 mg/dL [facility] GLUCOSE 96 70 - 99 mg/dL [facility] ALBUMIN 4.1 3.9 - 4.8 g/dL [facility] TOTAL PROTEIN 7.2 6.5 - 8.0 g/dL [facility] CALCIUM 10.2 8.4 - 10.3 mg/dL [facility] ALKALINE PHOSPHATASE 73 39 - 117 U/L [facility] TOTAL BILIRUBIN 0.5 0.0 - 1.2 mg/dL [facility] AST 22 0 - 37 U/L [facility] ALT 13 0 - 40 U/L [facility] GLOBULIN 3.1 1 - 4.8 g/dL [facility] EGFR 63 >59 mL/min/1.7 3m2 [facility] Comment:If patient is black, multiply result by 1.159. Estimated glomerular filtration rate calculated using the CKD-EPI equation. ANION GAP 14 10 - 20 mmol/L [facility] Blood 03/19/2019 10:1 0 AM EDT 03/19/2019 10:24 AM EDT Kacynel Holley Karthik DRY CHAIN WORKER LAB BLOOD ORDERABLES Final Result Performing Organization Address City/[facility]/ZIP Co de Phone Number [address] [address] * CBC (03/19/2019 10:10 AM EDT) WBC 5.01 3.40 - 11.20 K/uL [facility] RBC 4.51 3.80 - 4.80 M/uL [facility] HGB 13.6 12.0 - 15.0 g/dL [facility] HCT 41.9 36.0 - 46.0 % [facility] PLT 216 130 - 400 K/uL [facility] MCV 92.9 79.0 - 98.0 [facility] MCH 30.2 27.0 - 34.8 pg [facility] MCHC 32.5 31.5 - 36.0 g/dL [facility] RDW 12.2 10.8 - 14.6 % [facility] MPV 9.6 9.4 - 12.4 [facility] NRBC 0.00 0.00 /100 WBCs [facility] ABSOLUTE NRBC 0.00 0.00 K/uL [facility] Blood 03/19/2019 10:1 0 AM EDT 03/19/2019 10:24 AM EDT Kacy Leydigallito Angeles DRY CHAIN WORKER LAB BLOOD ORDERABLES Final Result Performing Organization Address City/[facility]/ZIP Co de Phone Number [address] [address] * Immunoglobulin A (03/19/2019 10:10 AM EDT) IgA 257 70 - 400 mg/dL [facility] Blood 03/19/2019 10:1 0 AM EDT 03/19/2019 10:24 AM EDT Kacy Angeles DRY CHAIN WORKER LAB BLOOD ORDERABLES Final Result Performing Organization Address City/[facility]/ZIP Co de Phone Number [facility] [address] [place] [address] * Tissue transglutaminase IgA (03/19/2019 10:10 AM EDT) TTG IGA ANTIBODY <1.2 <4.0 (Negative) U/mL [facility] Blood 03/19/2019 10:1 0 AM EDT 03/19/2019 10:23 AM EDT Kacynel Holley Karthik DRY CHAIN WORKER LAB BLOOD ORDERABLES Final Result Performing Organization Address City/[facility] Co de Phone Number [facility] LAB MED/[facility] [address] [place] [address] documented in this encounter Visit Diagnoses Diagnosis Change in bowel habits- Primary Other symptoms involving digestive system Bloating Flatulence, eructation, and gas pain Lower abdominal pain Abdominal pain, other specified site documented in this encounter Additional Health Concerns Infection Onset Date Last Indicated Resolved Time CoV-Risk Comment:COVID-19 test pending 12/01/2019 12/01/2019 12/15/2019 1:23 AM EDT COVID-19 12/01/2019 12/01/2019 01/11/2020 1:23 AM EDT documented as of this encounter Care Teams Academic Affairs Dean Relationship Specialty Start Date End Date Maryam Ortiz CNP [address] [place] [address] PCP - General Family Medicine 03/10/19 12/01/20 Unknown, Unknown, PCP - General 12/02/20 04/19/21 Tamia Melendez NP PCP - General Family Medicine 04/20/21 Tavo Gomez DO [address] [place] [address] Historical LMR Provider 06/23/17 Maryam Ortiz CNP [address] [place] [address] Historical LMR Provider 06/23/17 Lars Guillermo MD [address] [place] [address] Historical LMR Provider 06/23/17 Jackson Huerta MD [address] [place] [address] [email or web address] Historical LMR Provider 06/23/17 09/10/21 Tamia Melendez NP [address] [place] [address] Historical LMR Provider 06/23/17 2 Mamie Mccord MD [address] [place] [address] Orthopedics & Sports Medicine, [place] [address] Historical LMR Provider 06/23/17 Tavo Gomez DO [address] [place] [address] Insurance Assigned Provider 12/10/19 09/10/21 Lulu Odonnell MD [address] [place] [address] Hand Surgery 04/28/21 documented as of this encounter Additional Source Comments The information contained in this document represents components of the legal health record. It is not the complete legal health record.[facility]
--- OUTSIDE RECORDS SUMMARY | 2025-05-17 12:09 | XMS_ITS | Clinical Summary ---
Author Organization [facility] Address [address] [place] [phone] Phone Care Team Providers Care Photograph Developer Name Role Phone Tavo Gomez DO Unavailable Maryam Ortiz TELESALES MANAGER Unavailable Tamia Melendez NP Primary Care Provider Lulu Odonnell MD Unavailable [phone] Allergies Active Allergy Reactions Criticality Noted Date Comments Sulfa (Sulfonamide Antibiotics) Anaphylaxis High 06/2018 Medications aspirin 81 mg chewable tablet Take 1 tablet by mouth daily. Active DOCOSAHEXANOIC ACID/EPA (FISH OIL ORAL) Take 1 capsule by mouth daily. 2 Active L.michael,acid,ferm ,rhm-B.bif,long (CONTROLLED DELIVERY PROBIOTIC) 126 mg (2 billion cell) TaDE Take 1 capsule by mouth daily. Active ASCORBATE CALCIUM (VITAMIN C ORAL) Take 1 capsule by mouth daily. Active cholecalciferol (VITAMIN D3) 2,000 unit tablet Take 1,000 Units by mouth daily. Active hydrocortisone 1 % ointment Apply topically 2 (two) times a day. Active levothyroxine (SYNTHROID,LEVO THROID) 25 MCG tabletIndicatio ns:Hypothyroidi sm TAKE 1/2 (ONE-HALF) TABLET BY MOUTH IN THE MORNING ON AN EMPTY STOMACH 45 tablet 5 0 Active Active Problems Problem Noted Date Diagnosed Date Irritable bowel syndrome with diarrhea 0 Overview (12/23/2019): Under care of Dr Rose at [facility] 08/21/2019 Pure hypercholesterolemia 03/25/2019 Assessment & Plan (03/25/2019 8:55 AM EDT): As above Diarrhea 03/10/2019 Strain of cervical portion of right trapezius mu scle 12/25/2017 Esophageal spasm 12/25/2017 Hypothyroidism 09/10/2017 Low back pain 09/10/2017 Palpitations 09/10/2017 Postmenopausal estrogen deficiency 09/10/2017 Routine medical exam 09/10/2017 Resolved Problems Problem Noted Date Diagnosed Date Resolved Date Abdominal pain, epigastric 03/10/2019 0 12/23/2019 Assessment & Plan (03/11/2019 9:14 AM EDT): ? Relationship to atorvastatin. Pt will take a short holiday from the medication until we can achieve symptomatic improvement and then we'll consider reinstituting. Pt has a hx of GI ulcer as well and is advised to start a 2 week trial of omeprazole. Pt also to follow with Dr Rose as there was a recommendation to consider abd CT if previous symptoms persisted. ? IBS. Pt to RTC in 2 weeks and sooner prn for reevaluation. Abdominal bloating 03/10/2019 0 LLQ abdominal pain 07/02/2018 0 Assessment & Plan (07/02/2018 8:31 AM EDT): Suspect diverticulitis based on new sx and LLQ tenderness. Obtain labs, provide stool samples and after reviewing labs today if ESR, CRP elevated then will treat for diverticulitis and order CT scan, otherwise treat for infectious colitis while awaiting stool results. Eat at tolerated, avoid dairy and citrus, continue probiotic Elevated blood pressure read ing without diagnosis of hypertension 09/10/2017 09/12/2017 Impaired fasting glucose 09/10/201706/2018 Right hip pain 09/10/2017 09/12/2017 Right knee pain 09/10/2017 09/12/2017 Immunizations Immunization Administration Dates Next Due COVID-19 (Pre-06/25) Pfizer Vaccine, mRNA, PF ,10/08/2020 Influenza High-Dose Trivalent Preservative Free IM 06/30/2014 Pneumococcal conjugate PCV13 09/16/2018 Pneumococcal polysaccharide PPSV23 09/07/2014 Td (adult) 5 Lf Tetanus Toxoid, PF, Adsorbed 04/2007 Tdap 09/12/2016 Zoster live 01/15/2012 Family History Medical History Relation Comments Hyperlipidemia Brother Hypertension Brother Pancreatic cancer Brother Aneurysm Daughter 1 Brain No Known Problems Daughter 2 Heart attack Father Alzheimer's disease Mother Hypertension Mother Relation Status Comments Brother Daughter 1 Daughter 2 Father Mother Social History Tobacco Use Types Packs/Day Years Used Date Smoking Tobacco: Never Smokeless Tobacco: Never Alcohol Use Standard Drinks/Week Comments Yes 0 (1 standard drink = 0.6 oz pur e alcohol) Education Answer Date Recorded Are you interested in more education? Not on aneta e 12/29/2022 Are you concerned about learning? Not on file 12/29/2022 No 12/29/2022 No 12/29/2022 Digital Access Answer Date Recorded No 01/29/2023 No 01/29/2023 Reliable internet access at home? Not on file 01/29/2023 Device with a working camera? Not on file Comments Unknown Sex and Gender Information Value Date Recorded Sex Assigned at Female 11/18/2019 11:42 AM EDT Legal Sex Female 10:08 PM EDT Gender Identity Female 11/18/2019 11:42 AM EDT Sexual Orientation Straight 11/18/2019 11 :42 AM EDT Last Filed Vital Signs Vital Sign Reading Time Taken Comments Blood Pressure 141/79 08/21/2019 10:52 AM EST Pulse 68 12/08/2019 1:56 PM EDT Temperature 36.7 C (98 F) 12/08/2019 1:56 PM EDT Respiratory Rate - - Oxygen Saturation 96% 12/08/2019 1:56 PM EDT Inhaled Oxygen Concentration - - Weight 73.2 kg (161 lb 6 oz) 08/21/2019 10:52 AM EST Height 162.6 cm (5' 4.02 ) 08/21/2019 10:[address] Body Mass Index 27.69 08/21/2019 10:52 AM EST Plan of Treatment Health Maintenance Due Date Last Done Comments HEPATITIS C SCREENING 1963 ZOSTER VACCINES (2 of 3) 03/11/2012 01/15/2012 RSV VACCINE (1 - 1-dose 75+ series) 2020 DEPRESSION SCREENING 11/17/2020 11/18/2019 TSH LEVEL 02/23/2021 02/24/2020, 10/05, 09/13/2018, Additional history exists INFLUENZA VACCINE (#1) 2025 , 06/30/2020, 06/30/2014 COVID-19 VACCINE (3 - 2024- season) 2025 10/30/2020, 10/08/2020 LIPID PANEL 05/25/2026 05/25/2021, 02/02, 02/04/2019, Additional history exists Adult Td,Tdap Booster 09/12/2026 09/12/2016, 007 OSTEOPOROSIS SCREENING INITIAL (ONE-TIME) Completed 05/15/2017 PNEUMOCOCCAL VACCINES (50+ years) Completed 09/16/2018, 09/07/2014 SMOKING STATUS SCREENING (Once After 26 Yrs) Completed 08/21/2019 HEPATITIS A VACCINES Aged Out No long er eligible based on patient's age to complete this topic HIB VACCINES Aged Out No longer eligi ble based on patient's age to complete this topic MENINGOCOCCAL VACCINES (ACWY) Aged Out No longer eligible based on patient's age to complete this topic MENINGOCOCCAL VACCINES (B) Aged Out N o longer eligible based on patient's age to complete this topic Medical Devices Not on file Procedures Procedure Name Priority Date/Time Associated Diagnosis Comments LIPID PANEL Routine 02/24/2020 8:00 AM EDT Pure hypercholesterolemia TSH Routine 02/24/2020 8:00 AM EDT Acquired hypothyroidism OUTSIDE BONE DENSITY SCREENING Routine 05/15/2017 from Last 3 Months or Most Recently Relevant to Health Maintenance Results * TSH (02/24/2020 8:00 AM EDT) TSH 1.07 0.27 - 4.20 uIU/mL [facility] Blood 02/24/2020 8:00 AM EDT 02/24/2020 8:17 AM EDT us Maryam Ortiz CNP LAB BLOOD ORDERABLES Final Result Performing Organization Address City/[facility] Co de Phone Number [address] [address] * Lipid panel (02/24/2020 8:00 AM EDT) HDL 61 mg/dL [facility] Comment: Interpretation <40 mg/dL: Low HDL cholesterol (major risk factor for CHD) Greater than or equal to 60 mg/dL: High HDL cholesterol ( negative risk factor for CHD) HDL - cholesterol is affected by a number of factors, e.g. smoking, excerise, hormones, sex and age. CHOLESTEROL 202 0 - 240 mg/dL [facility] TRIGLYCERIDES 85 30 - 160 mg/dL [facility] LDL 124 50 - 129 mg/dL [facility] Comment: LDL levels in terms of risk for coronary heart disease: <100 mg/dL: Optimal 100-129 mg/dL: Near or above optimal 130-159 mg/dL: Borderline high 160-189 mg/dL: High >190 mg/dL: Very High CARDIAC RISK RATIO 3.3 3.3 - 4.4 C [facility] Blood 02/24/2020 8:00 AM EDT 02/24/2020 8:17 AM EDT us Maryam Ortiz CNP LAB BLOOD ORDERABLES Final Result Performing Organization Address City/[facility]/ZIP Co de Phone Number [address] [address] * OUTSIDE BONE DENSITY SCREENING (05/15/2017) BONE DENSITY SCREENING - EXTERNAL [facility] us Historical Provider HEALTH MAINTENANCE Final Result from Last 3 Months or Most Recently Relevant to Health Maintenance Insurance MEDICARE PART A & B MEDICARE ENHANCE SUPPLEMENT MEDICARE PART A & B [facility] MEDICARE ENHANCE SUPPLEMENT MEDICARE PART A & B [facility] MEDICARE ENHANCE SUPPLEMENT MEDICARE PART A & B [facility] MEDICARE ENHANCE SUPPLEMENT [facility] Address: [facility] [id number] [place] [address] MEDICARE PART A & B MEDICARE ENHANCE SUPPLEMENT [facility] Address: [facility] [id number] [place] [address] MEDICARE PART A & [place] [address] MEDICARE ENHANCE SUPPLEMENT MEDICARE PART A & B [facility] MEDICARE ENHANCE SUPPLEMENT MEDICARE PART A & B [facility] MEDICARE ENHANCE SUPPLEMENT MEDICARE PART A & B [facility] MEDICARE ENHANCE SUPPLEMENT Advance Directives For more information, please contact: [phone] (9AM - 5PM Trisha/[facility], Sunday-Sunday) Documents on File Type Date Recorded Patient Development Administrator Expl anation MOLST 09/20/2018 10:23 AM Care Teams Photograph Developer Relationship Specialty Start Date End Date Tamia Melendez NP [address] [place] [address] PCP - General Family Medicine 04/20/21 Tavo Gomez DO [address] [place] [address] Historical LMR Provider 06/23/17 Maryam Ortiz CNP [address] [place] [address] Historical LMR Provider 06/23/17 Lulu Odonnell MD [address] [place] [address] Hand Surgery 04/28/21 Additional Source Comments The information contained in this document represents components of the legal health record. It is not the complete legal health record.[facility]
--- OUTSIDE RECORDS SUMMARY | 2025-05-17 12:09 | XMS_ITS | Encounter Summary ---
Author Organization [facility] Address [address] [place] [address] Phone Care Team Providers Care Director Of Retention Name Role Phone Tavo Gomez DO Unavailable Maryam Ortiz CNP Unavailable Lars Giullermo MD Unavailable Jackson Huerta MD Unavailable [phone] Tamia Melendez NP Unavailable Mamie Mccord MD Unavailable Tavo Gomez DO Unavailable Maryam Ortiz CNP Primary Care Provide r Tavo Gomez DO Primary Care Provider [phone] Maryam Ortiz DENTAL CERAMIST HELPER Primary Care Provide r Tavo Gomez DO Unavailable Unknown, Unknown Primary Care Provider Tamia Duque PUBLIC IMPROVEMENT INSPECTOR Primary Care Provider Lulu Odonnell MD Unavailable Encounter Details Date Type Department Care Team (Late st Contact Info) Description 07/02/2018 Transcribe Orders [facility] [address] [place] [address] Maryam Ortiz CNP 29 [facility] [place] [address] Watery stools Social History Tobacco Use Types Packs/Day Years [...] Procedure Name Priority Date/Time Associated Diagnosis Comments OVA AND PARASITES, STOOL Routine 07/02/2018 9:40 AM EDT Watery stools STOOL CULTURE Routine 07/02/2018 9:40 AM EDT Watery stools documented in this encounter Results * Stool culture (07/02/2018 9:40 AM EDT) Specimen Source/ Description STOOL STOOL [facility] Special Requests None [facility] Culture/Test NO SALMONELLA, SHIGELLA OR CAMPYLOBACTER ISOLATED [facility] Report Status 07/05/2018 FINAL [facility] Stool (Stool) 07/02/2018 9:4 0 AM EDT 07/02/2018 9:42 AM EDT us Maryam Ortiz DENTAL CERAMIST HELPER MICROBIOLOGY - GENERA L ORDERABLES Final Result [facility] [address] [place] [address] * Ova and parasites, stool (07/02/2018 9:40 AM EDT) Specimen Source/ Description STOOL STOOL [facility] Special Requests None [facility] DIRECT EXAM No parasites found by Trichrome Stain [facility] DIRECT EXAM NO PARASITES FOUND BY DIRECT OR CONCENTRATION METHODS [facility] Report Status 07/05/2018 FINAL [facility] Stool (Stool) 07/02/2018 9:4 0 AM EDT 07/02/2018 9:42 AM EDT Maryam Ortiz CNP MICROBIOLOGY - GENERA L ORDERABLES Final Result Performing Organization Address City/State/[facility] Co de Phone Number [facility] [address] [place] [address] documented in this encounter Visit Diagnoses Diagnosis Watery stools Abnormal feces documented in this encounter Additional Health Concerns Infection Onset Date Last Indicated Resolved Time CoV-Risk Comment:COVID-19 test pending 12/01/2019 12/01/2019 12/15/2019 1:23 AM EDT COVID-19 12/01/2019 12/01/2019 01/11/2020 1:23 AM EDT documented as of this encounter Care Teams Director Of Retention Relationship Specialty Start Date End Date Maryam Ortiz CNP [address] [place] [address] PCP - General Family Medicine 07/01/18 11/03/18 Tavo Gomez DO [address] [place] [address] PCP - General Family Medicine 11/04/18 03/09/19 Maryam Ortiz CNP [address] [place] [address] PCP - General Family Medicine 03/10/19 12/01/20 Unknown, Janeth, PCP - General 12/02/20 04/19/21 Tamia Melendez PUBLIC IMPROVEMENT INSPECTOR PCP - General Family Medicine 04/20/21 Tavo Gomez DO [address] [place] [address] [email or web address] Historical LMR Provider 06/23/17 Maryam Ortiz CNP [address] [place] [address] [email or web address] Historical LMR Provider 06/23/17 Lars Guillermo MD [address] [place] [address] Historical LMR Provider 06/23/17 Jackson Huerta MD [address] [place] [address] [email or web address] Historical LMR Provider 06/23/17 09/10/21 Tamia Melendez NP [address] [place] [address] Historical LMR Provider 06/23/17 Mamie Heart MD [address] [place] [address] [facility], [place] [address] [email or web address] Historical LMR Provider 06/23/17 Tavo Gomze DO [address] [place] [address] Insurance Assigned Provider 12/01/17 03/15/19 Tavo Gomez DO [address] [place] [address] [email or web address] Insurance Assigned Provider 12/10/19 09/10/21 Lulu Odonnell MD [address] [place] [address] Hand Surgery 04/28/21 documented as of this encounter Additional Source Comments The information contained in this document represents components of the legal health record. It is not the complete legal health record.[facility]
--- OUTSIDE RECORDS SUMMARY | 2025-05-17 12:09 | XMS_ITS | Clinical Summary ---
Author Organization [facility] Address [address] [place] [address] Care Team Providers Care Rv Detailer Name Role Phone Tamia Melendez Primary Care Provider [phone] Allergies Active Allergy Reactions Criticality Noted Date Comments Sulfa (Sulfonamide Antibiotics) Anaphylaxis High 06/2018 Medications No known medications Active Problems Problem Noted Date Diagnosed Date Trigger middle finger of left hand 03/30/2021 Overview (03/30/2021): Added automatically from request for surgery [id number] Social History Tobacco Use Types Packs/Day Years Used Date Smoking Tobacco: Former Smokeless Tobacco: Never Comments Unknown Sex and Gender Information Value Date Recorded Sex Assigned at Not on file Legal Sex Female 9:07 AM EDT Gender Identity Not on file Sexual Orientation Not on file Plan of Treatment Health Maintenance Due Date Last Done Comments Osteoporosis Screening 1995 Zoster Vaccines (2 of 3) 03/11/2012 01/15/2012 RSV Vaccine (60+ years old and patients) (1 - 1-dose 75+ series) 2020 Alcohol/Substance Use Screening 09/03/2024 Health Care Proxy Review 09/03/2024 COVID-19 Vaccine (3 - 2024-2 6 season) 2025 10/30/2020, 10/08/2020 Influenza Vaccine (#1) 2025 DTaP,Tdap,and Td Vaccines (2 - Td or Tdap) 09/12/2026 09/12/2016, 01/08/2007 Pneumococcal Vaccine: 50+ Years Completed 09/16/2018, 09/07/2014 Hepatitis B Vaccines Aged Out No long er eligible based on patient's age to complete this topic Insurance MEDICARE [facility] Care Teams Rv Detailer Relationship Specialty Start Date End Date Tamia Melendez [address] [place] [address] PCP - General 03/28/21
[2025-05-17 12:30] LABS: MANUAL DIFF FLAG NO
[2025-05-17 12:32] LABS: Hematocrit 41.8 % (37.0-47.0); Hemoglobin 14.2 g/dl (12.0-16.0); Imm Gran Abs Auto 0.01 X10*3/uL (0.00-0.03); Imm Gran Pct Auto 0.1 % (0.0-0.4); Lymphocytes Absolute Auto 3.6 X10*3/uL (1.2-4.9); Mean Corpuscular HGB Conc 34.0 g/dl (31.0-35.0); Mean Corpuscular Hemoglobin 30.3 pg (27.0-33.0); Mean Corpuscular Volume 89.3 fL (80.0-98.0); NRBC Abs Auto 0.000 X10*3/uL (0.0-0.012); NRBC Pct Auto 0.0 /100WBC (0.0-0.2); Platelet Count 244 X10*3/uL (160-400); Red Blood Count 4.68 X10*6/uL (4.20-5.50); White Blood Count 9.0 X10*3/uL (4.8-10.8)
[2025-05-17 12:46] LABS: Alanine Aminotransferase 11 U/L (0-31); Albumin Level 4.2 g/dL (3.5-5.0); Alkaline Phosphatase 82 U/L (39-117); Anion Gap 14 (12-20); Aspartate Amino Transferase 30 U/L (5-31); Blood Urea Nitrogen 14 mg/dL (9-16); Calcium 9.6 mg/dL (8.4-10.2); Carbon Dioxide 23 mmol/L (22-29); Chloride 109 mmol/L (96-108); Creatinine Clr Calc Pharmacy 42.7; Estimated Glomerular Filt Rate 53; Potassium 3.5 mmol/L (3.3-5.1); Sodium 142 mmol/L (135-145); Total Protein 7.2 g/dL (6.5-8.0)
[2025-05-17 13:22] LABS: COVID-19 Test Negative (Negative); IDNOW Serial# 152EDE1D; IDNOW Serial# 16C4AD1C; Influenza B2 Negative (Negative)
[2025-05-17 15:43] LABS: Appearance Urine Clear; Glucose Urine UA Negative (Negative); PH 8.5 (5.0-9.0); Specific Gravity - Urine 1.010 (1.005-1.025); UMIC TRIGGER UACC YES
--- NOTE | 2025-05-17 16:50 | PC.NURSE ---
Report given to [facility] RN, family requesting to drive pt home.
[2025-05-17 17:01] VITALS: BP 115/59; PULSE 70; RESP 17; TEMP 36.4; O2SAT 98
== END 2025-05-17 17:02 ==
PROVIDERS: Registered Nurse Emergency; Emergency Provider Emergency Medicine
DX: R51.9 Headache, unspecified (principal); M54.2 Cervicalgia; Z11.52 Encounter for screening for COVID-19; Z79.899 Other long term (current) drug therapy
CPT/HCPCS: 70450; 72125; 80053; 81001; 85025; 87502; 87635; 99284

== ENCOUNTER → 2025-05-17 12:02 | Outpatient (BNV) | payer MEDICARE, OTHER, SELFPAY | PROVIDERS: Emergency Provider Emergency Medicine; Visit Provider Radiology Diagnostic Radiology | DX: M43.12 Spondylolisthesis, cervical region (principal); R51.9 Headache, unspecified | CPT/HCPCS: 70450; 72125 ==

== ENCOUNTER 2025-08-22 19:25 | Emergency (ER) | payer MEDICARE, OTHER, SELFPAY ==
--- NOTE | 2025-08-22 | ECG_ITS ---
Test Reason : FALL Blood Pressure : */* mmHG Vent. Rate : 84 BPM Atrial Rate : 84 BPM P-R Int : 184 ms QRS Dur : 62 ms QT Int : 378 ms P-R-T Axes : 77 11 39 degrees QTcB Int : 446 ms Normal sinus rhythm Low voltage QRS Borderline ECG No previous ECGs available Referred By: Generic ED Physician Electronically Signed By: Celso Restrepo
--- NOTE | ~2025-08-22 | CT_ITS ---
CLINICAL HISTORY: right chest wall pain CT chest without contrast Comparison: None provided Findings: The heart size is normal. No pericardial effusion. Aortic and coronary atherosclerosis. No aneurysm. No enlarged mediastinal lymph nodes. 1.5 cm nodule in the inferior left thyroid lobe. The lungs are clear. No pleural effusion or pneumothorax. Left hepatic lobe cyst. Small hiatal hernia. Age indeterminate nondisplaced fractures of the right anterior 3rd and 5th ribs. Degenerative changes of the spine. IMPRESSION: Age indeterminate nondisplaced fractures of the right anterior 3rd and 5th ribs. No acute intrathoracic findings. This document has been electronically signed by: Nicole Galvin MD on 08/23/2025 00:55:15
--- NOTE | ~2025-08-22 | CT_ITS ---
CLINICAL HISTORY: right hip pain post fall CT abdomen and pelvis without contrast Comparison: None provided Findings: Small hiatal hernia. Liver, gallbladder, pancreas, spleen, and adrenal glands are within normal limits. No hydronephrosis or urolithiasis. Colonic diverticulosis without acute inflammation. No bowel obstruction, pneumatosis or pneumoperitoneum. Normal appendix. Aortic atherosclerosis. No aneurysm. Hysterectomy. Urinary bladder is within normal limits. Right hip contusion. Age indeterminate nondisplaced fracture of S5. Degenerative changes of the spine. No other fractures. IMPRESSION: 1. Right hip contusion. 2. Age indeterminate nondisplaced fracture of S5. 3. No other acute intraabdominal or pelvic pathology. This document has been electronically signed by: Nicole Galvin MD on 08/23/2025 00:56:54
--- NOTE | ~2025-08-22 | CT_ITS ---
CLINICAL HISTORY: fall CT cervical spine without contrast Comparison: CT/SR - CT CERVICAL SPINE WO IV CON - 05/17/25 12:50 EDT Findings: Chronic minimal anterolisthesis of C3 on C4 and C7 on T1. Multilevel degenerative changes. No acute fractures or dislocations. No acute findings on limited view of the intracranial contents. No cervical fluid collections or masses. Lung apices are clear. IMPRESSION: No acute findings. This document has been electronically signed by: Nicole Galvin MD on 08/23/2025 00:55:40
--- NOTE | ~2025-08-22 | CT_ITS ---
CLINICAL HISTORY: fall CT head without contrast Comparison: CT/SR - CT HEAD/BRAIN WO IV CON - 05/17/25 12:50 EDT Findings: No intra-axial mass, midline shift, hydrocephalus, or acute hemorrhage. Diffuse volume loss. Periventricular and subcortical white matter hypoattenuation likely chronic small-vessel ischemic changes. Intracranial atherosclerosis. There is no sinus or mastoid fluid. The orbits are within normal limits. No skull fracture. IMPRESSION: 1. No acute intracranial findings. This document has been electronically signed by: Nicole Galvin MD on 08/23/2025 00:41:21
[2025-08-22 19:33] VITALS: BP 136/78; BP 150/59; PULSE 85; PULSE 90; RESP 15; TEMP 36.4; O2SAT 98; O2SAT 99; BMI 27.8
--- NOTE | 2025-08-22 19:44 | PC.NURSE ---
pt brittany from memory care unit at [facility] for fall, unknown hs/loc but -thinners. pt reports she tripped and fell but staff was unsure of event. pt at this time reports right hip pain, no deformities noted. pt a&ox1 at baseline. vss. 20g placed in rac and labs obtained
[2025-08-22 19:57] LABS: Hematocrit 37.6 % (37.0-47.0); Hemoglobin 12.4 g/dl (12.0-16.0); Imm Gran Abs Auto 0.02 X10*3/uL (0.00-0.03); Imm Gran Pct Auto 0.3 % (0.0-0.4); Lymphocytes Absolute Auto 2.2 X10*3/uL (1.2-4.9); MANUAL DIFF FLAG SCAN; Mean Corpuscular HGB Conc 33.0 g/dl (31.0-35.0); Mean Corpuscular Hemoglobin 30.3 pg (27.0-33.0); Mean Corpuscular Volume 91.9 fL (80.0-98.0); NRBC Abs Auto 0.000 X10*3/uL (0.0-0.012); NRBC Pct Auto 0.0 /100WBC (0.0-0.2); PLT CLUMP 1; Red Blood Count 4.09 X10*6/uL (4.20-5.50); SCAN SMEAR FLAG 1
--- OUTSIDE RECORDS SUMMARY | 2025-08-22 20:03 | XMS_ITS | Encounter Summary ---
Author Organization [facility] Address [address] [place] [address] Phone Care Team Providers Care Mail Truck Driver Name Role Phone Tavo Gomez DO Unavailable Maryam Ortiz CNP Unavailable Lars Guillermo MD Unavailable [phone] Jackson Huerta MD Unavailable [phone] Tamia Melendez NP Unavailable [phone] Mamie Mccord MD Unavailable [phone] Maryam Ortiz CNP Primary Care Provide r Tavo Gomez DO Unavailable Unknown, Unknown Primary Care Provider Tamia Duque NP Primary Care Provider Lulu Odonnell MD Unavailable [phone] Encounter Details Date Type Department Care Team (Late st Contact Info) Description 02/20/2020 Transcribe Orders [address] [address] Maryam Ortiz CNP 29 [facility] [place] [address] Social History Tobacco Use Types Packs/Day Years [...] on filedocumented in this encounter Care Teams Mail Truck Driver Relationship Specialty Start Date End Date Maryam Ortiz CNP [address] [place] [address] PCP - General Family Medicine 03/10/19 12/01/20 Unknown, Unknown, PCP - General 12/02/20 04/19/21 Tamia Melendez NP PCP - General Family Medicine 04/20/21 Tavo Gomez DO [address] [place] [address] [email or web address] Historical LMR Provider 06/23/17 Maryam Ortiz CNP [address] [place] [address] Historical LMR Provider 06/23/17 Lars Guillermo MD [address] [place] [address] Historical LMR Provider 06/23/17 Jackson Huerta MD [address] [place] [address] [email or web address] Historical LMR Provider 06/23/17 09/10/21 Tamia Melendez NP [address] [place] [address] Historical LMR Provider 06/23/17 2 Mamie Mccord MD [address] [place] [address] [facility] Sports Medicine, [place] [address] [email or web address] Historical LMR Provider 06/23/17 Tavo Gomez DO [address] [place] [address] [email or web address] Insurance Assigned Provider 12/10/19 09/10/21 Lulu Odonnell MD [address] [place] [address] Hand Surgery 04/28/21 documented as of this encounter Additional Source Comments The information contained in this document represents components of the legal health record. It is not the complete legal health record.[facility]
--- OUTSIDE RECORDS SUMMARY | 2025-08-22 20:03 | XMS_ITS | Clinical Summary ---
Author Organization [facility] Address [address] [place] [address] Phone Care Team Providers Care Sanitarian Inspector Name Role Phone Tavo Gomez DO Unavailable Maryam Ortiz CROP RESEARCH SCIENTIST Unavailable Tamia Melendez NP Primary Care Provider Lulu Odonnell MD Unavailable Allergies Active Allergy Reactions Criticality Noted Date [...] (12/23/2019): Under care of Dr Rose at [facility] Gastro Corns 08/21/2019 Pure hypercholesterolemia 03/25/2019 [...] Health Maintenance Due Date Last Done Comments ZOSTER VACCINES (2 of 3) 03/11/2012 01/15/2012 [...] Routine 02/24/2020 8:00 AM EDT Pure hypercholesterolemia THYROID STIMULATING HORMONE (TSH) Routine 02/24/2020 8:00 AM EDT Acquired hypothyroidism OUTSIDE BONE DENSITY SCREENING Routine 05/15/2017 from Last 3 Months or Most Recently Relevant to Health Maintenance Results * TSH (02/24/2020 8:00 AM EDT) TSH 1.07 0.27 - 4.20 uIU/mL [facility] Blood 02/24/2020 8:00 AM EDT 02/24/2020 8:17 AM EDT us Maryam Ortiz CNP LAB BLOOD BKR ORDERAB LES Final Result Performing Organization Address [facility] Co de Phone Number [address] [address] * Lipid panel (02/24/2020 8:00 AM EDT) HDL 61 mg/dL [facility] Comment: Interpretation <40 mg/dL: Low HDL cholesterol (major risk factor for CHD) Greater than or equal to 60 mg/dL: High HDL cholesterol ( negative risk factor for CHD) HDL - cholesterol is affected by a number of factors, e.g. smoking, excerise, hormones, sex and age. CHOLESTEROL 202 0 - 240 mg/dL [facility] TRIGLYCERIDES 85 30 - 160 mg/dL [facility] LDL 124 50 - 129 mg/dL [facility] Comment: LDL levels in terms of risk for coronary heart disease: <100 mg/dL: Optimal 100-129 mg/dL: Near or above optimal 130-159 mg/dL: Borderline high 160-189 mg/dL: High >190 mg/dL: Very High CARDIAC RISK RATIO 3.3 3.3 - 4.4 C [facility] Blood 02/24/2020 8:00 AM EDT 02/24/2020 8:17 AM EDT us Maryam Ortiz CNP LAB BLOOD BKR ORDERAB LES Final Result Performing Organization Address [facility]/ZIP Co de Phone Number [address] [address] * OUTSIDE BONE DENSITY SCREENING (05/15/2017) Pathologist [facility] BONE DENSITY SCREENING - EXTERNAL [facility] us Historical Provider HEALTH MAINTENANCE Final Result from Last 3 Months or Most Recently Relevant to Health Maintenance Insurance MEDICARE PART A & B Member Subscriber Plan / Payer (Ef fective 2010-Present) Name:Ellyn Nunez Member ID:[id number] Relation to Subscriber:Self Name:Ellyn Nunez Subscriber ID:[id number] Payer ID:[id number] Group ID:Not on file Type:Medicare Address: [employer] [address] MEDICARE ENHANCE SUPPLEMENT Member Subscriber Plan / Payer (Ef fective 2016-Present) Name:JunaidEllyn rai Relation to Subscriber:Self Name:MayraEllyn Payer ID:[id number] (NAIC) Group ID:Not on file Type:[employer] Address: [facility] [id number] [place] [address] [place] [address] MEDICARE PART A & B [facility] MEDICARE ENHANCE SUPPLEMENT [facility] Address: [address] [place] GARCIA [address] MEDICARE PART A & B [facility] MEDICARE ENHANCE SUPPLEMENT MEDICARE PART A & B [facility] MEDICARE ENHANCE SUPPLEMENT [facility] Address: [facility] [id number] [place] [address] MEDICARE PART A & B MEDICARE ENHANCE SUPPLEMENT [facility] Address: [facility] [address] [place] [address] MED[address] PART A & [place] [address] [address] MEDICARE ENHANCE SUPPLEMENT MEDICARE PART A & B [facility] MEDICARE ENHANCE SUPPLEMENT [facility] Address: [facility] [id number] [place] [address] MEDICARE PART A & B [facility] MEDICARE ENHANCE SUPPLEMENT MEDICARE PART A & B [facility] MEDICARE ENHANCE SUPPLEMENT Advance Directives For more information, please contact: [phone] (9AM - 5PM [facility], Sunday-Sunday) Documents on File Type Date Recorded Patient Inspector General Expl anation JESSICA 09/20/2018 10:23 AM Care Teams Sanitarian Inspector Relationship Specialty Start Date End Date Tamia Melendez NP [address] [place] [address] PCP - General Family Medicine 04/20/21 Tavo Gomez DO [address] [place] [address] Historical LMR Provider 06/23/17 Maryam Ortiz CNP [address] [place] [address] Historical LMR Provider 06/23/17 Lulu Odonnell MD [address] [place] [address] Hand Surgery 04/28/21 Additional Source Comments The information contained in this document represents components of the legal health record. It is not the complete legal health record.[facility]
--- OUTSIDE RECORDS SUMMARY | 2025-08-22 20:03 | XMS_ITS | Clinical Summary ---
Author Organization [facility] Address [facility] [place] [address] Care Team Providers Care Manager Export Name Role Phone Unavailable Primary Care Provider [...] Screening 1963 Tetanus/Diphtheria/Pertussis Vaccines (1 - Tdap) 1964 Pneumoccocal Vaccine: 50+ (1 of 1 - PCV) 1995 Zoster vaccine (1 of 2) 1995 Advance Directive 2000 Bone Density Scan 2010 RSV Vaccine (1 - 1-dose 75+ series) 2020 Covid-19 Vaccine (3 - 2024- season) 2025, 10/08/2020 Influenza (Flu) vaccine (1 o f 1 - Influenza standard series) 05/04/2025 Insurance MEDICARE [facility]
--- OUTSIDE RECORDS SUMMARY | 2025-08-22 20:03 | XMS_ITS | Encounter Summary ---
Author Organization [facility] Address [address] [place] [address] Phone Care Team Providers Care Mounter Sousaphones Name Role Phone Tavo Gomez DO Primary Care Provider [phone] Tavo Gomez DO Unavailable Maryam Ortiz CNP Unavailable Lars Guillermo MD Unavailable Jackson Huerta MD Unavailable [phone] Tamia Melendez NP Unavailable Mamie Mccord MD [...] Contact Info) Description 09/10/2017 Transcribe Orders [facility] [place] [address] [place] [address] Tavo Gomez, 29 [facility] [place] [address] [email or web address] Impaired fasting glucose; Acquired hypothyroidism Social History [...] Date/Time Associated Diagnosis Comments COMPREHENSIVE METABOLIC PANEL (CMP) Routine 09/10/2017 11:04 AM EST Impaired fasting glucose CBC Routine 09/10/2017 11:04 AM EST Impaired fasting glucose THYROID STIMULATING HORMONE (TSH) Routine 09/10/2017 11:04 AM EST Acquired hypothyroidism LIPID PANEL Routine 09/10/2017 11:04 AM EST Acquired hypothyroidism documented in this encounter Results * TSH (09/10/2017 11:04 AM EST) TSH 2.01 0.27 - 4.20 uIU/mL [facility] Blood 09/10/2017 11:0 4 AM EST 09/10/2017 11:06 AM EST us Maryam Ortiz WIPING CLOTH CUTTER LAB BLOOD BKR ORDERAB LES Final Result [facility] [address] [place] [address] * (ABNORMAL) Lipid panel (09/10/2017 11:04 AM EST) HDL 57 mg/dL [facility] Comment: Interpretation: Risk Level Females Decreased >55mg/dL Average 50-55 mg/dL Increased <50 mg/dL CHOLESTEROL 227 0 - 240 mg/dL [facility] TRIGLYCERIDES 151 30 - 160 mg/dL [facility] LDL 140(H) 50 - 129 mg/dL [facility] Comment: LDL levels in terms of risk for coronary heart disease: <100 mg/dL: Optimal 100-129 mg/dL: Near or above optimal 130-159 mg/dL: Borderline high 160-189 mg/dL: High >190 mg/dL: Very High CARDIAC RISK RATIO 4.0 3.3 - 4.4 C [facility] Blood 09/10/2017 11:0 4 AM EST 09/10/2017 11:06 AM EST us Maryam Ortiz WIPING CLOTH CUTTER LAB BLOOD BKR ORDERAB LES Final Result Performing Organization Address City/State/[facility] Co de Phone Number [address] [phone] * Comprehensive metabolic panel (09/10/2017 11:04 AM EST) SODIUM 142 133 - 146 mmol/L [facility] POTASSIUM 4.1 3.3 - 5.1 mmol/L [facility] CHLORIDE 102 96 - 108 mmol/L [facility] CO2 29 21 - 35 mmol/L [facility] BUN 14 6 - 19 mg/dL [facility] CREATININE 0.80 0.5 - 1.5 mg/dL [facility] GLUCOSE 82 70 - 99 mg/dL [facility] ALBUMIN 4.2 3.9 - 4.8 g/dL [facility] TOTAL PROTEIN 7.3 6.5 - 8.0 g/dL [facility] CALCIUM 9.8 8.4 - 10.3 mg/dL [facility] ALKALINE PHOSPHATASE 69 39 - 117 U/L [facility] TOTAL BILIRUBIN 0.4 0 - 1.2 mg/dL [facility] AST 21 0 - 37 U/L [facility] ALT 9 0 - 40 U/L [facility] GLOBULIN 3.1 1 - 4.8 g/dL [facility] EGFR >60 mL/min/1.7 3m2 [facility] Comment:Abnormal if <60. If patient is -[place], multiply the result by 1.21. ANION GAP 15 10 - 20 mmol/L [facility] Blood 09/10/2017 11:0 4 AM EST 09/10/2017 11:06 AM EST Maryam Ortiz [facility] LAB BLOOD BKR ORDERAB LES Final Result Performing Organization Address [facility] Co de Phone Number [address] [address] * (ABNORMAL) CBC (09/10/2017 11:04 AM EST) WBC 7.09 3.40 - 11.20 K/uL [facility] RBC 4.83(H) 3.80 - 4.80 M/uL [facility] HGB 14.5 12.0 - 15.0 g/dL [facility] HCT 44.0 36.0 - 46.0 % [facility] PLT 233 130 - 400 K/uL [facility] MCV 91.1 79.0 - 98.0 fL [facility] MCH 30.0 27.0 - 34.8 pg [facility] MCHC 33.0 31.5 - 36.0 g/dL [facility] RDW 11.9 10.8 - 14.6 % [facility] MPV 9.4 9.4 - 12.4 fl [facility] NRBC 0.00 /100 WBCs [facility] ABSOLUTE NRBC 0.00 K/uL [facility] Blood 09/10/2017 11:0 4 AM EST 09/10/2017 11:06 AM EST Maryam Ortiz CNP LAB BLOOD BKR ORDERAB LES Final Result Performing Organization Address [facility] Co de Phone Number [address] [address] documented in this encounter Visit Diagnoses Diagnosis Impaired fasting glucose Acquired hypothyroidism Unspecified hypothyroidism documented in this encounter Additional Health Concerns Infection Onset Date Last Indicated Resolved Time CoV-Risk Comment:COVID-19 test pending 12/01/2019 12/01/2019 12/15/2019 1:23 AM EDT COVID-19 12/01/2019 12/01/2019 01/11/2020 1:23 AM EDT documented as of this encounter Care Teams Mounter Sousaphones Relationship Specialty Start Date End Date Tavo Gomez DO [address] [place] [address] PCP - General 06/21/17 06/30/18 Maryam Ortiz, WIPING CLOTH CUTTER [address] [place] [address] PCP - General Family Medicine 07/01/18 11/03/18 Tavo Gomez DO [address] [place] [address] PCP - General Family Medicine 11/04/18 03/09/19 Maryam Ortiz, WIPING CLOTH CUTTER [address] [place] [address] PCP - General Family Medicine 03/10/19 12/01/20 Unknown, Unknown, PCP - General 12/02/20 04/19/21 Tamia Melendez, HEARING DOG TRAINER PCP - General Family Medicine 04/20/21 Tavo Gomez DO [address] [place] [address] Historical LMR Provider 06/23/17 Maryam Ortiz, ZAID [address] [place] [address] [email or web address] Historical LMR Provider 06/23/17 Lars Guillermo MD [address] [place] [address] Historical LMR Provider 06/23/17 Jackson Huerta MD [address] [place] [address] [email or web address] Historical LMR Provider 06/23/17 09/10/21 Tamia Melendez NP [address] [place] [address] Historical LMR Provider 06/23/17 Mamie Heart MD [address] [place] [address] [facility] Medicine, [place] [address] [email or web address] Historical LMR Provider 06/23/17 Tavo Gomez DO [address] [place] [address] Insurance Assigned Provider 12/01/17 03/15/19 Tavo Gomez DO [address] [place] [address] Insurance Assigned Provider 12/10/19 09/10/21 Lulu Odonnell MD [address] [place] [address] Hand Surgery 04/28/21 documented as of this encounter Additional Source Comments The information contained in this document represents components of the legal health record. It is not the complete legal health record.[facility]
--- OUTSIDE RECORDS SUMMARY | 2025-08-22 20:03 | XMS_ITS | Encounter Summary ---
Author Organization [facility] Address [address] [place] [address] Phone Care Team Providers Care Legal Practice Manager Name Role Phone Tavo Gomez DO Unavailable Maryam Ortiz CNP Unavailable Lars Guillermo MD Unavailable Jackson Huerta MD Unavailable [phone] Tamia Melendez NP Unavailable Mamie Mccord MD Unavailable Maryam Otriz CNP Primary Care Provide r Tavo Gomez DO Unavailable Unknown, Unknown Primary Care Provider Tamia Duque NP Primary Care Provider Lulu Odonnell MD Unavailable [phone] Reason for Referral * MRI/CAT Scan - Closed Specialty Diagnoses / Procedures Referred By Adina chambers Referred To Contact Radiology Diagnoses Lower abdominal pain Bloating Change in bowel habits Procedures CT Abdomen/Pelvis Kacy Angeles CNP Phone: tel: fax: mailto: Referral ID Status Reason Start Date Expiration Date Visits Re quested Visits Authorized [id number] Closed 03/20/2019 03/19/2020 1 1 Encounter Details Date Type Department Care Team (Latest Contact Info) Description 03/20/2019 Transcribe Orders Virtual Department [address] [place] [address] Kacy Angeles CNP [address] [place] [address] Lower abdominal pain (Primary Dx); Bloating; Change [...] 6.30 mGy POS - [id number] Kacy Angeles CNP IM CT ABD/PELVIS Final Re sult documented in this encounter Visit Diagnoses Diagnosis [...] documented as of this encounter Care Teams Legal Practice Manager Relationship Specialty Start Date End Date Maryam Ortiz CNP [address] [place] [address] PCP - General Family Medicine 03/10/19 12/01/20 Unknown, Janeth, PCP - General 12/02/20 04/19/21 Tamia Melendez NP PCP - General Family Medicine 04/20/21 Tavo Gomez DO [address] [place] [address] [email or web address] Historical LMR Provider 06/23/17 Maryam Ortiz CNP [address] [place] [address] Historical LMR Provider 06/23/17 Lars Guillermo MD [address] [place] [address] Historical LMR Provider 06/23/17 Jackson Huerta MD [address] [place] [address] [email or web address] Historical LMR Provider 06/23/17 09/10/21 Tamia Melendez NP [address] [place] [address] Historical LMR Provider 06/23/17 Mamie Heart MD [address] [place] [address] Orthopedics & Sports Medicine, [place] [address] [email or web address] Historical LMR Provider 06/23/17 Tavo Gomez DO [address] [place] [address] [email or web address] Insurance Assigned Provider 12/10/19 09/10/21 Lulu Odonnell MD [address] [place] [address] Hand Surgery 04/28/21 documented as of this encounter Additional Source Comments The information contained in this document represents components of the legal health record. It is not the complete legal health record.[facility]
--- OUTSIDE RECORDS SUMMARY | 2025-08-22 20:04 | XMS_ITS | Encounter Summary ---
Author Organization [facility] Address [address] [place] [address] Phone Care Team Providers Care Sisal Picker Name Role Phone Tavo Goemz DO Unavailable Maryam Ortiz CNP Unavailable Lars Guillermo MD Unavailable Jackson Huerta MD Unavailable [phone] Tamia Melendez NP Unavailable Mamie Mccord MD Unavailable Tavo Gomez DO Unavailable Tavo Gomez DO Primary Care Provider Maryam Ortiz CNP Primary Care Provide r Tavo Gomez DO Unavailable Unknown, Unknown Primary Care Provider Tamia Duque LAMINATING MACHINE OPERATOR HELPER Primary Care Provider Lulu Odonnell MD Unavailable [phone] Encounter Details Date Type Department Care Team (Late st Contact Info) Description 11/18/2018 Ancillary Orders [facility] [address] [place] [address] Maryam Ortiz, SKIRT CLIPPER [address] [place] [address] [email or web address] Abnormal stress test; Increased heart rate; Activity [...] AM EDT) Max BP Systolic 180 mmHg [facility] Max BP Diastolic 60 mmHg [facility] Max HR 157 BPM [facility] Resting HR 66 BPM [facility] Resting BP Systolic 120 mmHg [facility] Resting BP Diastolic 70 mmHg [facility] Peak METS 10.1 METS [facility] Peak HR 155 BPM [facility] Anatomical Region Laterality Modality Heart Other [...] separately. Clinton Reeves NP . Maryam Ortiz SKIRT CLIPPER CV NM CARDIAC Final Result documented in [...] documented as of this encounter Care Teams Sisal Picker Relationship Specialty Start Date End Date Tavo Gomez DO [address] [place] [address] PCP - General Family Medicine 11/04/18 03/09/19 Maryam Ortiz CNP [address] [place] [address] PCP - General Family Medicine 03/10/19 12/01/20 Unknown, Unknown, PCP - General 12/02/20 04/19/21 Tamia Melendez NP PCP - General Family Medicine 04/20/21 Tavo Gomez DO [address] [place] [address] Historical LMR Provider 06/23/17 Maryam Ortiz CNP [address] [place] [address] Historical LMR Provider 06/23/17 Lars Guillermo MD [address] [place] [address] Historical LMR Provider 06/23/17 Jackson Huerta MD [address] [place] [address] [email or web address] Historical LMR Provider 06/23/17 09/10/21 Tamia Melendez NP [address] [place] [address] Historical LMR Provider 06/23/17 2 Mamie Mccord MD [address] [place] [address] Orthopedics & Sports Medicine, [facility] [place] [address] Historical LMR Provider 06/23/17 Tavo Gomez DO [address] [place] [address] Insurance Assigned Provider 12/01/17 03/15/19 Tavo Gomez DO [address] [place] [address] [email or web address] Insurance Assigned Provider 12/10/19 09/10/21 Lulu Odonnell MD [address] [place] [address] Hand Surgery 04/28/21 documented as of this encounter Additional Source Comments The information contained in this document represents components of the legal health record. It is not the complete legal health record.[facility]
--- OUTSIDE RECORDS SUMMARY | 2025-08-22 20:04 | XMS_ITS | Clinical Summary ---
Author Organization [facility] Address [address] [place] [address] Care Team Providers Care Assembler Production Line Name Role Phone Tamia Melendez Primary Care Provider Allergies Active Allergy Reactions Criticality Noted Date Comments Sulfa (Sulfonamide Antibiotics) Anaphylaxis High 06/2018 Medications No known medications Active Problems Problem Noted Date Diagnosed Date Trigger middle finger of left hand 03/30/2021 Overview (03/30/2021): Added automatically from request for surgery [id number] Social History Tobacco Use Types Packs/Day Years [...] Screening 09/03/2024 Health Care Proxy Review 09/03/2024 Influenza Vaccine (#1) 2025 COVID-19 Vaccine (3 - 2024-2 6 season) 2025 10/30/2020, 10/08/2020 DTaP,Tdap,and Td Vaccines (2 - Td or Tdap) 09/12/2026 09/12/2016, 01/08/2007 Pneumococcal Vaccine: 50+ Years Completed 09/16/2018, 09/07/2014 Hepatitis B Vaccines Aged Out No long er eligible based on patient's age to complete this topic Insurance MEDICARE [facility] Care Teams Assembler Production Line Relationship Specialty Start Date End Date Tamia Melendez [address] [place] [address] PCP - General 03/28/21
--- OUTSIDE RECORDS SUMMARY | 2025-08-22 20:04 | XMS_ITS | Encounter Summary ---
Author Organization [facility] Address [address] [place] [address] Phone Care Team Providers Care Group Leader [employer] Testing Name Role Phone Tavo Gomez DO Unavailable Maryam Ortiz CNP Unavailable [phone] Lars Guillermo MD Unavailable [phone] Jackson Huerta MD Unavailable [phone] Tamia Melendez NP Unavailable [phone] Mamie Mccord MD Unavailable Maryam Ortiz CNP Primary Care Provide r Tavo Gomez DO Unavailable Unknown, Unknown Primary Care Provider Tamia Duque NP Primary Care Provider [phone] Lulu Odonnell MD Unavailable Encounter Details Date Type Department Care Team (Latest Contact Info) Description 03/19/2019 Transcribe Orders [facility] [address] [place] [address] [phone] Kacy Angeles CNP [address] [place] [address] Change in bowel habits (Primary Dx); Bloating; [...] AM EDT) [facility] Negative Negative [facility] DPT OF LAB MED AND PAT+ Stool (Stool) 03/22/2019 9:3 2 AM EDT 03/22/2019 9:43 AM EDT Kacy Angeles CNP LAB BODY FLUIDS AND STOOL ORDERABLES Final Result [facility] DPT OF LAB MED AND PAT+ [address] [place] [address] * Fecal occult blood, multiple (03/22/2019 9:32 AM EDT) FECAL OCC BLD 1 DATE [phone],[id number] [facility] Occult bld, stool, #1 Negative Negative [facility] FECAL OCC BLD 2 DATE 7,192,019 [facility] OCCULT BLD, STOOL, #2 Negative Negative [facility] FECAL OCC BLD 3 DATE 7,,019 [facility] FECAL OCC BLD 3 RSLT Negative Negative [facility] Stool (Stool) 03/22/2019 9:3 2 AM EDT 03/22/2019 9:38 AM EDT Kacy Angeles CNP BODY FLUIDS AND STOOLS ORD ERABLES Final Result [facility] [address] [place] [address] * Giardia antigen screen (03/22/2019 9:32 AM EDT) ST GIARDIA ANTIGEN Negative Negative [facility] DPT OF LAB MED AND PAT+ Stool (Stool) 03/22/2019 9:3 2 AM EDT 03/22/2019 9:43 AM EDT us Kacynel Holley Karthik MAR LAB BODY FLUIDS AND STOOL ORDERABLES Final Result Performing Organization Address [facility]/ZIP Co de Phone Number [facility] DPT OF LAB MED AND PAT+ [address] [place] [address] * Ova and parasites, stool (03/22/2019 5:30 AM EDT) Special Requests None 03/22/2019 9:32 AM EDT [facility] DIRECT EXAM NO PARASITES FOUND BY DIRECT OR CONCENTRATION METHODS 03/27/2019 2:25 PM EDT [facility] DIRECT EXAM No parasites found by Trichrome Stain 03/27/2019 2:25 PM EDT [facility] Stool (Stool) 03/22/2019 5:3 0 AM EDT 03/22/2019 9:41 AM EDT Comment:STOOL Kacy Leydigallito Angeles CNP LAB BODY FLUIDS AND STOOL ORDERABLES Final Result Performing Organization Address [facility] de Phone Number [address] [address] * Fecal leukocyte examination (03/22/2019 5:30 AM EDT) Special Requests None 03/22/2019 9:32 AM EDT [facility] GRAM STAIN Many WBC'S Observed 03/23/2019 1:42 PM EDT [facility] Stool (Stool) 03/22/2019 5:3 0 AM EDT 03/22/2019 9:41 AM EDT Kacynel Holley Karthik MAR LAB BODY FLUIDS AND STOOL ORDERABLES Edited Result - Final Performing Organization Address [facility]/ZIP Co de Phone Number [address] [address] * Stool culture (03/22/2019 5:30 AM EDT) Special Requests None 03/22/2019 9:32 AM EDT [facility] Stool Culture NO SALMONELLA, SHIGELLA OR CAMPYLOBACTER ISOLATED 03/24/2019 10:26 AM EDT [facility] Stool (Stool) 03/22/2019 5:3 0 AM EDT 03/22/2019 9:41 AM EDT Kacy Angeles [facility] LAB MICROBIOLOGY CULTURE O RDERABLES Final Result Performing Organization Address [facility] Co de Phone Number [address] [address] * Ova and parasites, stool (03/21/2019 6:30 AM EDT) Special Requests None 03/22/2019 9:32 AM EDT [facility] DIRECT EXAM NO PARASITES FOUND BY DIRECT OR CONCENTRATION METHODS 03/27/2019 2:26 PM EDT [facility] DIRECT EXAM No parasites found by Trichrome Stain 03/27/2019 2:26 PM EDT [facility] Stool (Stool) 03/21/2019 6:3 0 AM EDT 03/22/2019 9:40 AM EDT Kacy Angeles CNP LAB BODY FLUIDS AND STOOL ORDERABLES Final Result Performing Organization Address [facility] Co de Phone Number [address] [address] * Ova and parasites, stool (03/20/2019 6:15 AM EDT) Special Requests None 03/22/2019 9:32 AM EDT [facility] DIRECT EXAM NO PARASITES FOUND BY DIRECT OR CONCENTRATION METHODS 03/27/2019 2:25 PM EDT [facility] DIRECT EXAM No parasites found by Trichrome Stain 03/27/2019 2:25 PM EDT [facility] Stool (Stool) 03/20/2019 6:1 5 AM EDT 03/22/2019 9:36 AM EDT Comment:STOOL Kacy Angeles [facility] LAB BODY FLUIDS AND STOOL ORDERABLES Final Result [address] [address] * C-Reactive Protein (03/19/2019 10:10 AM EDT) C REACTIVE PROTEIN 0.9 0.0 - 4.0 mg/L [facility] Blood 03/19/2019 10:1 0 AM EDT 03/19/2019 10:24 AM EDT Kacy Angeles [facility] LAB BLOOD BKR ORDERABLES F inal Result Performing Organization Address City/[facility]/ZIP Co de Phone Number [address] [address] * (ABNORMAL) Comprehensive metabolic panel (03/19/2019 10:10 AM EDT) SODIUM 143 133 - 146 mmol/L [facility] POTASSIUM 4.5 3.3 - 5.1 mmol/L [facility] CHLORIDE 105 96 - 108 mmol/L [facility] CO2 29 21 - 35 mmol/L [facility] BUN 20(H) 6 - 19 mg/dL [facility] CREATININE 0.90 0.5 - 1.5 mg/dL [facility] GLUCOSE 96 70 - 99 mg/dL [facility] ALBUMIN 4.1 3.9 - 4.8 g/dL [facility] TOTAL PROTEIN 7.2 6.5 - 8.0 g/dL [facility] CALCIUM 10.2 8.4 - 10.3 mg/dL [facility] ALKALINE PHOSPHATASE 73 39 - 117 U/L [facility] TOTAL BILIRUBIN 0.5 0.0 - 1.2 mg/dL [facility] AST 22 0 - 37 U/L [facility] ALT 13 0 - 40 U/L [facility] GLOBULIN 3.1 1 - 4.8 g/dL [facility] EGFR 63 >59 mL/min/1.7 3m2 [facility] Comment:If patient is black, multiply result by 1.159. Estimated glomerular filtration rate calculated using the CKD-EPI equation. ANION GAP 14 10 - 20 mmol/L [facility] Blood 03/19/2019 10:1 0 AM EDT 03/19/2019 10:24 AM EDT Kacy Angeles [facility] LAB BLOOD BKR ORDERABLES F inal Result Performing Organization Address City/[facility]/ZIP Co de Phone Number [address] [address] * CBC (03/19/2019 10:10 AM EDT) WBC 5.01 3.40 - 11.20 K/uL [facility] RBC 4.51 3.80 - 4.80 M/uL [facility] HGB 13.6 12.0 - 15.0 g/dL [facility] HCT 41.9 36.0 - 46.0 % [facility] PLT 216 130 - 400 K/uL [facility] MCV 92.9 79.0 - 98.0 fL [facility] MCH 30.2 27.0 - 34.8 pg [facility] MCHC 32.5 31.5 - 36.0 g/dL [facility] RDW 12.2 10.8 - 14.6 % [facility] MPV 9.6 9.4 - 12.4 [facility] NRBC 0.00 0.00 /100 WBCs [facility] ABSOLUTE NRBC 0.00 0.00 K/uL [facility] Blood 03/19/2019 10:1 0 AM EDT 03/19/2019 10:24 AM EDT Kacy Angeles [facility] LAB BLOOD BKR ORDERABLES F inal Result Performing Organization Address City/[facility]/ZIP Co de Phone Number [address] [address] * Immunoglobulin A (03/19/2019 10:10 AM EDT) IgA 257 70 - 400 mg/dL [facility] Blood 03/19/2019 10:1 0 AM EDT 03/19/2019 10:24 AM EDT us Kacy Angeles [facility] LAB BLOOD BKR ORDERABLES F inal Result [facility] [address] [place] [address] * Tissue transglutaminase IgA (03/19/2019 10:10 AM EDT) TTG IGA ANTIBODY <1.2 <4.0 (Negative) U/mL [facility] Blood 03/19/2019 10:1 0 AM EDT 03/19/2019 10:23 AM EDT us Kacy Angeles [facility] LAB BLOOD BKR ORDERABLES F inal Result Performing Organization Address City/[facility]/ZIP Co de Phone Number [facility] LAB MED/[facility] [address] [place] [address] documented in this encounter Visit Diagnoses Diagnosis [...] documented as of this encounter Care Teams Group Leader Semiconductor Testing Relationship Specialty Start Date End Date Maryam Ortiz CNP [address] [place] [address] [place] [address] PCP - General Family Medicine 03/10/19 12/01/20 Unknown, Unknown, PCP - General 12/02/20 04/19/21 Tmaia Melendez NP PCP - General Family Medicine 04/20/21 Tavo Gomez DO [address] [place] [address] Historical LMR Provider 06/23/17 Maryam Ortiz CNP [address] [place] [address] [email or web address] Historical LMR Provider 06/23/17 Lars Guillermo MD [address] [place] [address] Historical LMR Provider 06/23/17 Jackson Huerta MD [address] [place] [address] [email or web address] Historical LMR Provider 06/23/17 09/10/21 Tamia Melendez NP [address] [place] [address] Historical LMR Provider 06/23/17 Mamie Heart MD [address] [place] [address] Orthopedics & Sports Medicine, [facility] [place] [address] [email or web address] Historical LMR Provider 06/23/17 Tavo Gomez DO [address] [place] [address] Insurance Assigned Provider 12/10/19 09/10/21 Lulu Odonnell MD [address] [place] [address] Hand Surgery 04/28/21 documented as of this encounter Additional Source Comments The information contained in this document represents components of the legal health record. It is not the complete legal health record.[facility]
--- OUTSIDE RECORDS SUMMARY | 2025-08-22 20:04 | XMS_ITS | Encounter Summary ---
Author Organization [facility] Address [address] [place] [address] Phone Care Team Providers Care Vault Person Name Role Phone Tavo Gomez DO Unavailable Maryam Ortiz CNP Unavailable Lars Guillermo MD Unavailable Jackson Huerta MD Unavailable [phone] Tamia Melendez NP Unavailable [phone] Mamie Mccord MD Unavailable Tavo Gomez DO Unavailable Maryam Ortiz CNP Primary Care Provide r Tavo Gomez DO Primary Care Provider [phone] Maryam Ortiz SECURITIES ADVISER Primary Care Provide r Tavo Gomez DO Unavailable Unknown, Unknown Primary Care Provider Tamia Duque MANAGER MARKET INTELLIGENCE Primary Care Provider Lulu Odonnell MD Unavailable Encounter Details Date Type Department Care Team (Late st Contact Info) Description 07/02/2018 Transcribe Orders [address] [address] Maryam Ortiz CNP [address] [facility] [place] [address] [email or web address] Watery stools Social History Tobacco Use Types [...] AM EDT) Specimen Source/ Description STOOL STOOL [facility] Special Requests None [facility] Culture/Test NO SALMONELLA, SHIGELLA OR CAMPYLOBACTER ISOLATED [facility] Report Status 07/05/2018 FINAL [facility] Stool (Stool) 07/02/2018 9:4 0 AM EDT 07/02/2018 9:42 AM EDT us Maryam Ortiz SECURITIES ADVISER LAB MICROBIOLOGY CULT URE ORDERABLES Final Result [facility] [address] [place] [address] * Ova and parasites, stool (07/02/2018 9:40 AM EDT) Specimen Source/ Description STOOL STOOL [facility] Special Requests None [facility] DIRECT EXAM No parasites found by Trichrome Stain [facility] DIRECT EXAM NO PARASITES FOUND BY DIRECT OR CONCENTRATION METHODS [facility] Report Status 07/05/2018 FINAL [facility] Stool (Stool) 07/02/2018 9:4 0 AM EDT 07/02/2018 9:42 AM EDT Maryam Ortiz CNP LAB BODY FLUIDS AND S TOOL ORDERABLES Final Result Performing Organization Address City/State/[facility] Co de Phone Number [facility] [address] [place] [address] documented in this encounter Visit Diagnoses Diagnosis Watery stools Abnormal feces documented in this encounter Additional Health Concerns Infection Onset Date Last Indicated Resolved Time CoV-Risk Comment:COVID-19 test pending 12/01/2019 12/01/2019 12/15/2019 1:23 AM EDT COVID-19 12/01/2019 12/01/2019 01/11/2020 1:23 AM EDT documented as of this encounter Care Teams Vault Person Relationship Specialty Start Date End Date Maryam Ortiz CNP [address] [place] [address] PCP - General Family Medicine 07/01/18 11/03/18 Tavo Gomez DO [address] [place] [address] PCP - General Family Medicine 11/04/18 03/09/19 Maryam Ortiz CNP [address] [place] [address] PCP - General Family Medicine 03/10/19 12/01/20 Unknown, Unknown, PCP - General 12/02/20 04/19/21 Tamia Melendez, MANAGER MARKET INTELLIGENCE PCP - General Family Medicine 04/20/21 Tavo Gomez DO [address] [place] [address] [email or web address] Historical LMR Provider 06/23/17 Maryam Ortiz CNP [address] [place] [address] [email or web address] Historical LMR Provider 06/23/17 Lars Guillermo MD [address] [place] [address] Historical LMR Provider 06/23/17 Jackson Huerta MD [address] [place] [address] [email or web address] Historical LMR Provider 06/23/17 09/10/21 Tamia Melendez NP [address] [place] [address] Historical LMR Provider 06/23/17 Mamie Heart MD [address] [place] [address] Orthopedics & Sports Medicine, [facility] [place] [address] [email or web address] Historical LMR Provider 06/23/17 Tavo Gomez DO [address] [place] [address] Insurance Assigned Provider 12/01/17 03/15/19 Tavo Gomez DO [address] [place] [address] [email or web address] Insurance Assigned Provider 12/10/19 09/10/21 Lulu Odonnell MD [address] [place] [address] Hand Surgery 04/28/21 documented as of this encounter Additional Source Comments The information contained in this document represents components of the legal health record. It is not the complete legal health record.[facility]
--- OUTSIDE RECORDS SUMMARY | 2025-08-22 20:04 | XMS_ITS | Encounter Summary ---
Author Organization [facility] Address [address] [place] [address] Phone Care Team Providers Care Powder Press Operator Name Role Phone Tavo Gomez DO Unavailable Maryam Ortiz CNP Unavailable Lars Guillermo MD Unavailable Jackson Huerta MD Unavailable [phone] Tamia Melendez NP Unavailable Mamie Mccord MD Unavailable Tavo Gomez DO Unavailable Maryam Ortiz CNP Primary Care Provide r Tavo Gomez DO Primary Care Provider [phone] Maryam Ortiz HOLISTIC SPECIALIST Primary Care Provide r Tavo Gomez DO Unavailable Unknown, Unknown Primary Care Provider Tamia Duque ADJUNCT PSYCHOLOGY FACULTY MEMBER Primary Care Provider [phone] Lulu Odonnell MD Unavailable [phone] Encounter Details Date Type Department Care Team (Late st Contact Info) Description 07/01/2018 Transcribe Orders [address] [address] Maryam Ortiz CNP [address] [place] [address] Social History Tobacco Use Types Packs/Day Years [...] documented as of this encounter Care Teams Powder Press Operator Relationship Specialty Start Date End Date Maryam Ortiz, ZAID [address] [place] [address] PCP - General Family Medicine 07/01/18 11/03/18 Tavo Gomez DO [address] [place] [address] PCP - General Family Medicine 11/04/18 03/09/19 Maryam Ortiz, ZAID [address] [place] [address] PCP - General Family Medicine 03/10/19 12/01/20 Unknown, Unknown, PCP - General 12/02/20 04/19/21 Tamia Melendez NP PCP - General [facility] Medicine 04/20/21 Tavo Gomez DO [address] [place] [address] [email or web address] Historical LMR Provider 06/23/17 Maryam Ortiz CNP [address] [place] [address] [email or web address] Historical LMR Provider 06/23/17 Lars Guillermo MD [address] [place] [address] Historical LMR Provider 06/23/17 Jackson Huerta MD [address] [place] [phone] [email or web address] Historical LMR Provider 06/23/17 09/10/21 aTmia Melendez NP [address] [place] [address] Historical LMR Provider 06/23/17 2 Mamie Mccord MD [address] [place] [address] Orthopedics & Sports Medicine, [place] [address] [email or web address] Historical LMR Provider 06/23/17 Tavo Gomez DO [address] [place] [address] [email or web address] Insurance Assigned Provider 12/01/17 03/15/19 Tavo Gomez DO [address] [place] [address] [email or web address] Insurance Assigned Provider 12/10/19 09/10/21 Lulu Odonnell MD [address] [place] [phone] Hand Surgery 04/28/21 documented as of this encounter Additional Source Comments The information contained in this document represents components of the legal health record. It is not the complete legal health record.[facility]
--- OUTSIDE RECORDS SUMMARY | 2025-08-22 20:04 | XMS_ITS | Encounter Summary ---
Author Organization [facility] Address [address] [place] [address] Phone Care Team Providers Care Clinical Faculty Name Role Phone Tavo Gomez DO Unavailable Maryam Ortiz CNP Unavailable Lars Guillermo MD Unavailable Jackson Huerta MD Unavailable [phone] Tamia Melendez NP Unavailable Mamie Mccord MD Unavailable Tavo Gomez DO Unavailable Maryam Ortiz CNP Primary Care Provide r Tavo Gomez DO Primary Care Provider [phone] Maryam Ortiz SAFETY COMPLIANCE SPECIALIST Primary Care Provide r Tavo Gomez DO Unavailable Unknown, Unknown Primary Care Provider Tamia Duque HEALTHCARE NETWORK CONSULTANT Primary Care Provider Lulu Odonnell MD Unavailable Encounter Details Date Type Department Care Team (Late st Contact Info) Description 09/13/2018 Transcribe Orders [address] [address] Maryam Ortiz CNP [address] [place] [address] Social History Tobacco Use Types Packs/Day Years [...] documented as of this encounter Care Teams Clinical Faculty Relationship Specialty Start Date End Date Maryam Ortiz, ZAID [address] [place] [address] PCP - General Family Medicine 07/01/18 11/03/18 Tavo Gomez DO [address] [place] [address] PCP - General Family Medicine 11/04/18 03/09/19 Maryam Ortiz, ZAID [address] [place] [address] PCP - General Family Medicine 03/10/19 12/01/20 Unknown, Unknown, PCP - General 12/02/20 04/19/21 Tamia Melendez NP PCP - General [facility] Medicine 04/20/21 Tavo Gomez DO [address] [place] [address] [email or web address] Historical LMR Provider 06/23/17 Maryam Ortiz CNP [address] [place] [address] [email or web address] Historical LMR Provider 06/23/17 Lars Guillermo MD [address] [place] [address] Historical LMR Provider 06/23/17 Jackson Huerta MD [address] [place] [address] [email or web address] Historical LMR Provider 06/23/17 09/10/21 Tamia Melendez NP [address] [place] [address] Historical LMR Provider 06/23/17 2 Mamie Mccord MD [address] [place] [address] Orthopedics & Sports Medicine, [place] [address] [email or web address] Historical LMR Provider 06/23/17 Tavo Gomez DO [address] [place] [address] [email or web address] Insurance Assigned Provider 12/01/17 03/15/19 Tavo Gomez DO [address] [place] [address] [email or web address] Insurance Assigned Provider 12/10/19 09/10/21 Lulu Odonnell MD [address] [place] [phone] Hand Surgery 04/28/21 documented as of this encounter Additional Source Comments The information contained in this document represents components of the legal health record. It is not the complete legal health record.[facility]
[2025-08-22 20:24] LABS: Troponin-I High Sensitivity < 2.7 ng/L (<3.5-17.0)
[2025-08-22 20:38] LABS: Platelet Count 211 X10*3/uL (160-400); White Blood Count 7.0 X10*3/uL (4.8-10.8)
[2025-08-22 21:13] LABS: Alanine Aminotransferase 6 U/L (0-31); Albumin Level 4.0 g/dL (3.5-5.0); Alkaline Phosphatase 82 U/L (39-117); Anion Gap 15 (12-20); Aspartate Amino Transferase 32 U/L (5-31); Blood Urea Nitrogen 17 mg/dL (9-16); Calcium 9.8 mg/dL (8.4-10.2); Carbon Dioxide 24 mmol/L (22-29); Chloride 110 mmol/L (96-108); Creatinine Clr Calc Pharmacy 43.9; Estimated Glomerular Filt Rate 51; Potassium 4.1 mmol/L (3.3-5.1); Sodium 145 mmol/L (135-145); Total Protein 6.5 g/dL (6.5-8.0)
[2025-08-22 21:22] VITALS: BP 144/55; PULSE 87; RESP 25; TEMP 36.3; O2SAT 97
--- NOTE | 2025-08-22 21:47 | ED_ITS ---
HPI - Fall General Chief Complaint: Fall Stated Complaint: Fall, no loc/head strike/thinners Time Seen by Provider: 08/22/25 19:44 History of Present Illness HPI Narrative: Patient 80-year-old female lives in a memory unit at the [facility]. Patient fell while walking in the hallway question head strike not on blood thinners. Patient unable to provide detailed. Complaining of pain to the right hip area. Related Data Allergies Allergy/AdvReac Type Severity Reaction Status Date / Time Sulfa (Sulfonamide Allergy Unknown Verified 08/22/25 19:38 Antibiotics) Review of Systems 2 Review of Systems: Unable to provide detailed review of systems secondary to patient's dementia COUNT INCLUDES [facility] Social History Social History Smoked in Last 30 Days: No Use of substances other than those prescribed or required for medical reasons: No Advance Directives: Yes Advance Directives on File: Yes Advance Directives Date on File: 08/22/25 Do you have a plan to hurt others: No Plan Physical Exam 2 Exam: Exam: Appearance: Alert. Oriented X1. No acute distress. Eyes: Pupils equal, round and reactive to light. ENT: Pharynx normal. Neck: Normal inspection. Neck supple. No lymph nodes noted. No crepitus CVS: Normal heart rate and rhythm. Pulses normal. Normal S1 and S2 Respiratory: No respiratory distress. Breath sounds normal. No Wheezing. No rales Abdomen: Soft and nontender. No rigidity. No distention. good BS x4 Skin: Skin warm and dry. Normal skin color. Normal skin turgor. Extremities: No lower extremity edema. Neurovascular intact to all extremities. No Lacerations. No Rash Neuro: Oriented X 1. mild pain on movement of the right hip. There is no pain on movement of the knee movement of the ankle. There is good pulses distally sensation intact. Left lower extremity normal no tenderness elicited on palpation or movement. Vital Signs: Vital Signs: Last Vital Signs Temp 97.7 F 08/23/25 01:05 Pulse 83 08/23/25 01:05 Resp 25 H 08/23/25 01:05 BP 157/61 H 08/23/25 01:05 Pulse Ox 95 08/23/25 01:05 O2 Del Method Room Air 08/23/25 01:05 BMI result Body Mass Index 27.8 Medical Decision Making Medical Decision Making [facility] Narrative: Patient well-appearing no acute distress. Unsure as to the reason why patient fell. CT scan of the head was done to rule out the possibility of bleed as there is a question head strike CT head was grossly negative by my interpretation CT C-spine which was negative by my interpretation I reviewed radiology's reading patient has had nonspecific pain to the pelvis nonspecific pain on palpation of the chest. There is no crepitus. There is no focal weakness. The pain was actually more on the left side. CT scan of the chest abdomen pelvis showed a question subacute nondisplaced rib fracture. There is no pneumothorax there is no pulmonary contusion there is no hemothorax. there is no tenderness to the chest wall both anterior and posteriorly on the right side.Patient's CT of the abdomen pelvis was negative for any obstruction no signs of traumatic injury positive for hip contusion only no fracture was noted. Attempted to contact patient's family patient's daughter was able to leave a message on the answering machine. No reply. Will discharge patient back to the snf. In stable condition. My interpretation of her EKG showed a sinus rhythm heart rate is 80 SD QRS QTC normal no acute ST segment elevation Differential Diagnosis Differential Diagnoses: The differential diagnosis associated with the presentation includes traumatic injury, syncope, electrolyte disturbance, anemia Admission/Observation Consideration of admission/observation: Escalation of care including admission/observation considered Lab Data [facility] Lab Attestation statement: I reviewed the patient's lab results. 08/22/25 19:49 08/22/25 20:39 Labs: Lab Results 08/22/25 08/22/25 Range/Units 19:49 20:39 WBC 7.0 (4.8-10.8) X10*3/uL RBC 4.09 L (4.20-5.50) X10*6/uL Hgb 12.4 (12.0-16.0) g/dl Hct 37.6 (37.0-47.0) % MCV 91.9 (80.0-98.0) fL MCH 30.3 (27.0-33.0) pg MCHC 33.0 (31.0-35.0) g/dl RDW 13.4 (11.0-16.0) % Plt Count 211 (160-400) X10*3/uL MPV 9.6 (9.4-12.3) fL Immature Gran % (Auto) 0.3 (0.0-0.4) % Neut % (Auto) 55.4 (45-73) % Lymph % (Auto) 31.8 (20-40) % [place] % (Auto) 8.7 (2-11) % Eos % (Auto) 3.1 (0-4) % Baso % (Auto) 0.7 (0-2) % Lymph # (Auto) 2.2 (1.2-4.9) X10*3/uL [place] # (Auto) 0.6 (0.1-1.2) X10*3/uL Eos # (Auto) 0.2 (0.0-0.4) X10*3/uL Baso # (Auto) 0.1 (0.0-0.2) X10*3/uL Abs Immat Gran (auto) 0.02 (0.00-0.03) X10*3/uL Absolute Neuts (auto) 3.9 (2.0-8.3) x10*3/uL Absolute Nucleated RBC 0.000 (0.0-0.012) X10*3/uL Nucleated RBC % (auto) 0.0 (0.0-0.2) /100WBC Smear Tech's Comments VERIFIED Sodium 145 (135-145) mmol/L Potassium 4.1 (3.3-5.1) mmol/L Chloride 110 H (96-108) mmol/L Carbon Dioxide 24 (22-29) mmol/L Anion Gap 15 (12-20) BUN 17 H (9-16) mg/dL Creatinine 1.04 (0.5-1.4) mg/dL Estim Creat Clear Calc 43.9 Estimated GFR 51 Random Glucose 92 (60-115) mg/dL Calcium 9.8 (8.4-10.2) mg/dL Total Bilirubin 0.5 (0.0-1.0) mg/dL AST 32 H (5-31) U/L ALT 6 (0-31) U/L Alkaline Phosphatase 82 (39-117) U/L Troponin I High Sens < 2.7 (<3.5-17.0) ng/L Total Protein 6.5 (6.5-8.0) g/dL Albumin 4.0 (3.5-5.0) g/dL Independent Interpretation I performed an independent interpretation of an: EKG ( sinus heart rate is 80 SD QRS QTC normal no acute ST segment elevation) and CT Scan ( CT head was grossly negative) Radiology Impression Discussion of test interpretation with radiology: I have reviewed the radiologist's reading. External Record Review snf record reviewed Chronic Conditions dementia Social Determinants Patient?s care significantly limited by Social Determinants of Health including: Problems related to primary support group Discharge Plan Discharge Clinical Impression: Head injury, Contusion of hip, Fracture of rib Patient Disposition: Home, Self-Care Instructions: Hip Contusion (ED), Head Injury (DC), Rib Fracture (ED) Referrals: Jennifer Puente MD [Primary Care Provider, [facility]] - 08/25/25 Print Language: Tamazight
[2025-08-22 23:25] VITALS: BP 146/64; PULSE 96; RESP 19; TEMP 36.6; O2SAT 95
[2025-08-23 01:05] VITALS: BP 157/61; PULSE 83; RESP 25; TEMP 36.5; O2SAT 95
--- NOTE | 2025-08-23 01:19 | PC.NURSE ---
report given to Alejandro RN at [facility]. awaiting ems transport
[2025-08-23 02:22] VITALS: BP 136/59; PULSE 84; RESP 20; TEMP 36.8; O2SAT 95
== END 2025-08-23 02:23 | disposition home or self-care (01) ==
PROVIDERS: Emergency Provider Emergency Medicine Emergency Medical Services; PCP Family Medicine
DX: S70.01XA Contusion of right hip, initial encounter (principal); S22.32XA Fracture of one rib, left side, initial encounter for closed fracture; S09.90XA Unspecified injury of head, initial encounter; W01.0XXA Fall on same level from slipping, tripping and stumbling without subsequent striking against object, initial encounter; Y93.89 Activity, other specified; Y92.128 Other place in nursing home as the place of occurrence of the external cause; Y99.8 Other external cause status
CPT/HCPCS: 36415; 70450; 71250; 72125; 74176; 80053; 84484; 85025; 93005; 99284; 99285

== ENCOUNTER → 2025-08-22 19:48 | Outpatient (BNV) | payer MEDICARE, OTHER, SELFPAY | PROVIDERS: Emergency Provider Emergency Medicine Emergency Medical Services; PCP Family Medicine; Visit Provider Internal Medicine Cardiovascular Disease | DX: Z04.3 Encounter for examination and observation following other accident (principal) | CPT/HCPCS: 93010 ==

== ENCOUNTER → 2025-08-22 21:48 | Outpatient (BNV) | payer MEDICARE, OTHER, SELFPAY | PROVIDERS: Emergency Provider Emergency Medicine Emergency Medical Services; PCP Family Medicine; Visit Provider Radiology Diagnostic Radiology | DX: S70.01XA Contusion of right hip, initial encounter (principal); R07.89 Other chest pain; Z04.3 Encounter for examination and observation following other accident | CPT/HCPCS: 70450; 71250; 72125; 74176 ==